=== PATIENT | male | born 1955 | race Caucasian/White ===

== ENCOUNTER 2024-12-23 10:48 | Outpatient (OUT) | payer MEDICARE, SELFPAY ==
--- OUTSIDE RECORDS SUMMARY | 2024-12-09 09:15 | XMS_ITS | Encounter Summary ---
Author Organization [employer] [facility] tem Address [id number] [address] [place] [address] Care Team Providers Care Training Engineer Name Role Phone Ashley Bryant MD Primary Care Provider Reason for Visit * Consultation (Routine) - Closed Specialty Diagnoses / Procedures Referred By Contac t Referred To Contact Cardiothoracic Surgery Diagnoses Pulmonary nodule Procedures DE OFFICE OUTPATIENT VISIT 60-74 MINS HIGH MDM [id number] (SNOMED CT) - AMB REFERRAL TO CARDIOTHORACIC SURGERY Reena Driscoll DO [address] [place] [address] Phone: tel: fax: Alphonso Juan MD [address] [place] [address] Phone: tel:[phone] fax:[phone] Referral ID Status Reason Start Date Expiration Date Visits Re quested Visits Authorized [id number] Closed 11/24/2024 05/23/2025 1 1 Encounter Details Date Type Department Care Team (Latest Contact Info) Description 12/09/2024 9:15 AM EDT Office Visit [facility] - Sean [facility] [address] [place] [phone] Alphonso Juan MD [address] [place], [place] [phone] Nodule of lower lobe of right lung (Primary Dx) Social History Tobacco Use Types Packs/Day Years Used Date Smoking Tobacco: Former Smokeless Tobacco: Never Alcohol Use Standard Drinks/Week Comments Yes 0 (1 standard drink = 0.6 oz pur e alcohol) rare PHQ-2 Answer Date Recorded Total Score 0 08/28/2020 Childcare Answer Date Recorded Childcare Unknown 01/06/2019 Employment Answer Date Recorded Employment Unknown 01/06/2019 Hunger Screening Answer Date Recorded Within the past 12 months we worried whether our food would run out before we got money to buy more. Never True 12/09/2024 Within the past 12 months th e food we bought just didn't last and we didn't have money to get more. Never True 12/09/2024 Purpose - Life Answer Date Recorded I have a purpose and direction in my life. Stron gly Agree 08/28/2020 Sex and Gender Information Value Date Recorded Sex Assigned at Male 10/19/2018 8:04 AM EDT Legal Sex Male 11:40 AM EDT Gender Identity Male 10/19/2018 8:04 AM EDT Sexual Orientation Straight 10/19/2018 8: 03 AM EDT documented as of this encounter Last Filed Vital Signs Vital Sign Reading Time Taken Comments Blood Pressure 150/70 12/09/2024 9:09 AM EDT Pulse 68 12/09/2024 9:09 AM EDT Temperature 36.3 C (97.3 F) 12/09/2024 9:09 AM EDT Respiratory Rate 18 12/09/2024 9:09 AM EDT Oxygen Saturation 97% 12/09/2024 9:09 AM EDT Inhaled Oxygen Concentration - - Weight 115.7 kg (255 lb) 12/09/2024 9:09 AM EDT Height - - Body Mass Index 32.72 09/21/2024 1:48 PM EST documented in this encounter Progress Notes * Alphonso Juan MD - 12/09/2024 9:15 AM EDT Images from the original note were not included. CARDIAC SURGERY OUTPATIENT CONSULT Date of Consultation: 12/09/2024 PCP: Ashley Bryant MD Chief Complaint: Right lower lobe lung nodule History of Present Illiness Wan Dawson is a 69 y.o. male who presents with right lower lobe lung nodule. He was a former smoker quit in 2006. In 2006 he underwent coronary bypass grafting x3 with ARAIZA to the LAD. He had a chest x-ray then a CT chest on 08/05/2024. This demonstrates 2.4 cm rounded right lower lobe medial lung lesion. PET scan on 08/30/[address] chest on 11/09/2024 shows right lower lobe lung nodule at 2.7 cm. He has no chest pain no shortness of breath. 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 Kidney stones Lumbar herniated disc Mitral regurgitation Obesity Other specified diabetes mellitus without complications ([facility]) Presence of aortocoronary bypass graft Renal cyst Sinusitis, chronic Vertigo Visual impairment glasses Surgical History has a past surgical history that includes Coronary artery bypass graft; Cardiac catheterization; Tonsillectomy; Knee surgery; Bowel resection; Ventral hernia repair (N/A, 11/09/2018); Cardiac catheterization (08/28/2020); Cardiac catheterization (N/A, 08/28/2020); Coronary stent placement (N/A, 08/28/2020); Colonoscopy; Cataract extraction; Cervical spine surgery; Esophagogastroduodenoscopy; Joint replacement (Left); Dental surgery; Colonoscopy (N/A, 01/11/2021); Cardiac catheterization (N/A, 03/27/2023); Cardiac catheterization (N/A, 03/27/2023); and Shoulder surgery (Right, 04/02/2023). Allergies Allergies Allergen Reactions Amoxicillin Trihydrate Rash Amoxicillin Rash Home Meds Prior to Admission medications Medication Sig Start Date End Date Taking? Authorizing Provider ACCU-CHEK FAN PLUS TEST STRP strip TEST TWICE DAILY 07/16/24 Yes Flor Valerio, [employer]EL SALES ASSOCIATE acetaminophen (TYLENOL) 500 mg tablet Take 1 tablet (500 mg total) by mouth every 6 (six) hours as needed for pain. Yes Not In System Ref Prov aspirin 81 mg Take 1 tablet (81 mg total) by mouth in the morning. Yes Not In System Ref Prov atorvastatin (LIPITOR) 20 mg tablet Take 1 tablet (20 mg total) by mouth in the morning. Yes Not InSystem Ref Prov cholecalciferol, vitamin D3, 2,000 units tablet Take 1 tablet (2,000 Units total) by mouth in the morning. Yes Not In System Ref Prov cyanocobalamin 2000 MCG tablet Take 1 tablet (2,000 mcg total) by mouth in the morning. Yes Not In System Ref Prov empagliflozin (JARDIANCE) 10 mg tablet tablet Take 1 tablet (10 mg total) by mouth in the morning. Stop previous script. 10/20/24 Yes Franck Hurtado MD ezetimibe (ZETIA) 10 mg tablet Take 1 tablet (10 mg total) by mouth in the morning. 09/23/24 Yes Franck Hurtado MD FeroSuL 325 mg (65 mg iron) tablet prn 08/23/22 Yes Not In System Ref Prov insulin aspart U-100 (NovoLOG Flexpen U-100 Insulin) 100 unit/mL (3 mL) insulin pen Inject 16 Unitsunder the skin in the morning and 16 Units at noon and 16 Units in the evening. Inject with meals. 03/24/24 Yes Franck Hurtado MD insulin degludec (TRESIBA FLEXTOUCH U-200) 200 unit/mL (3 mL) insulin pen 44 units daily as directed. 02/17/24 Yes Franck Hurtado MD lancets (ACCU-CHEK FASTCLIX LANCET DRUM) [facility] [place] TO TEST BLOOD SUGAR TWICE DAILY 07/23/24 Yes GERRY Batista melatonin (CIRCADIN) tablet Take 1 tablet (3 mg total) by mouth nightly. Yes Not In System Ref Prov metoprolol succinate XL (TOPROL XL) 25 mg 24 hr tablet Take 1 tablet (25 mg total) by mouth in the morning. 07/26/24 Yes GERRY Alfaro MOUNJARO 2.5 mg/0.5 mL pen injector Inject 2.5 mg under the skin once a week. 03/10/24 Yes Franck Hurtado MD nitroglycerin (NITROSTAT) 0.[address] 1 TABLET UNDER THE TONGUE EVERY 5 MINUTES NEEDED FOR CHEST PAIN 07/09/24 Yes GERRY De Luna omega-3 fatty acids-fish oil 300-1,000 mg capsule Take 1 mg by mouth in the morning. Yes Not In System Ref Prov pen needle, diabetic (BD GONZÁLEZ 2ND GEN PEN NEEDLE) 32 gauge x needle Use to inject insulins 5 times daily 02/20/24 Yes Franck Hurtado MD Social History Social History Socioeconomic History Marital status: Spouse name: Not on file Number of children: Not on file Years of education: Not on file Highest education level: Not on file Occupational History Not on file Tobacco Use Smoking status: Former Smokeless tobacco: Never Vaping Use Vaping status: Never Used Substance and Sexual Activity Alcohol use: Yes Comment: rare Drug use: No Sexual activity: Defer Other Topics Concern Caffeine Use Yes Comment: 1 cup in the morning Social History Narrative Not on file Social Drivers of Health Financial Resource Strain: Low Risk (12/31/2022) Received from [facility] Overall Financial Resource Strain (CARDIA) Difficulty of Paying Living Expenses: Not hard at all Food Insecurity: No Food Insecurity (12/09/2024) Hunger Screening Food Insecurity - Worry: Never True Food Insecurity - Inability: Never True Transportation Needs: Unknown (12/31/2022) Received from [facility] PRAPARE - Transportation Lack of Transportation (Medical): Not on file Lack of Transportation (Non-Medical): No Physical Activity: Not on file Stress: No Stress Concern Present (12/31/2022) Received from [facility] [place] [facility] Occupational Health - Occupational Stress Questionnaire Feeling of Stress : Not at all Social Connections: Socially Integrated (12/31/2022) Received from [facility] Social Connection and Isolation Panel [NHANES] Frequency of Communication with Friends and Family: More than three times a week Frequency of Social Gatherings with Friends and Family: Twice a week Attends [employer] Services: More than 4 times per year Active Member of Clubs or Organizations: Yes Attends Club or Organization Meetings: More than 4 times per year Marital Status: Interpersonal Safety: Unknown (12/31/2022) Received from [facility] Humiliation, Afraid, Rape, and Kick questionnaire Fear of Current or Ex-Partner: No Emotionally Abused: No Physically Abused: No Sexually Abused: Not on file Housing Instability: Unknown (12/31/2022) Received from [facility] Housing Stability Vital Sign Unable to Pay for Housing in the Last Year: No Number of Places Lived in the Last Year: Not on file Unstable Housing in the Last Year: No Family History Family History Problem Relation Age of Onset Cancer Mother Diabetes Mother Hypertension Father Review of Systems Review of Systems Constitutional: Positive for malaise/fatigue. Cardiovascular: Positive for dyspnea on exertion. All other systems reviewed and are negative. Physical Examination Vital Signs: BP 150/70 Pulse 68 Temp 36.3 ??C (97.3 ??F) (Temporal) Resp 18 Wt 115.7 kg (255 lb) SpO2 97% BMI 32.72 kg/m?? General appearance: He appears comfortable Head: Normocephalic, without obvious abnormality, atraumatic Eyes: Conjunctivae/corneas clear. PERRL, EOM's intact. Neck: Negative Lungs: Clear Heart: Regular rate and rhythm no murmur Abdomen: Soft, non-tender. Bowel sounds normal. No masses, no organomegaly Extremities: Normal Skin: Skin color, texture, turgor normal. No rashes or lesions Neurologic: Grossly normal Assessment All testing has been independently reviewed Diagnosis: Enlarging PET negative right lower lobe lung nodule. This has not been biopsied. It is in a difficult spot for biopsy. It would be reasonable to proceed with right lower lobe robotic wedge resection of the nodule. If this is a malignancy we would proceed to lobectomy. In preparation for that potential I am going to order pulmonary function tests and stress test. Plan Pulmonary function test and then stress test and then follow up for further discussion regarding right lower lobe lung nodule. Thank you for referring the patient allowing me to participate in his care documented in this encounter Plan of Treatment Upcoming Encounters Date Type Department Care Team (Late st Contact Info) Description 01/04/2025 9:00 AM EDT Appointment [facility] - Stress Imaging [address] [place] [address] 01/04/2025 9:15 AM EDT Appointment [facility] - Stress Imaging [address] [place] [address] 01/04/2025 9:45 AM EDT Appointment [facility] - Cardiovascular [address] [place] [address] 01/04/2025 10:45 AM EDT Appointment [facility] - Stress Imaging [address] [place] [address] 01/13/2025 9:00 AM EDT Office Visit [facility] - Sean [facility] [address] [facility] [address] [place] [phone] Alphonso Juan MD [address] [facility] [address] [place] [address] 01/20/2025 9:15 AM EDT Office Visit [facility] Card[facility] [address] [facility] [address] [place] [address] Tito Barrios MD [address] [facility] [place] [address] 02/28/2025 9:45 AM EDT Office Visit [facility], A Department of [facility] [address] [phone] Cassy Gongora, [employer] W[employer]-APPAREL SALES ASSOCIATE [address] [address] 06/20/2025 8:15 AM EST Office Visit [facility] Department of [facility] [address] [facility] [address] [place] [phone] Franck Hurtado MD [address] [facility], [address] [place] [address] documented as of this encounter Visit Diagnoses Diagnosis Nodule of lower lobe of right lung- Primary documented in this encounter Additional Health Concerns Assessment Noted Time PHQ-9 Depression Total Score: 0 08/28/19 8:39 AM EST documented as of this encounter Care Teams Training Engineer Relationship Specialty Start Date End Date Ashley Bryant MD PCP - General Family Medicine 12/27/16 documented as of this encounter
--- OUTSIDE RECORDS SUMMARY | 2024-12-13 07:54 | XMS_ITS | Encounter Summary ---
Author Organization [facility] tem Address [id number] [address] [place] [address] Care Team Providers Care Certified Master Safe Technician Name Role Phone Ashley Bryant MD Primary Care Provider [phone] Encounter Details Date Type Department Care Team (Latest Contact Info) Description 12/13/2024 7:54 AM EDT - 12/13/2024 11:59 PM EDT Hospital Encounter [facility] - Pulmonary Function [address] [place] [address] Shortness of breath Discharge Disposition: Home Social History Tobacco Use Types Packs/Day Years [...] AM EDT documented as of this encounter Medications at Time of Discharge ACCU-CHEK FAN PLUS TEST STRP strip TEST TWICE DAILY 200 strip 3 07/16/2024 acetaminophen (TYLENOL) 500 mg tablet Take 1 tablet (500 mg total) by mouth every 6 (six) hours as needed for pain. aspirin 81 mg Take 1 tablet (81 mg total) by mouth in the morning. atorvastatin (LIPITOR) 20 mg tablet Take 1 tablet (20 mg total) by mouth in the morning. cholecalciferol, vitamin D3, 2,000 units tablet Take 1 tablet (2,000 Units total) by mouth in the morning. cyanocobalamin 2000 MCG tablet Take 1 tablet (2,000 mcg total) by mouth in the morning. empagliflozin (JARDIANCE) 10 mg tablet tablet Take 1 tablet (10 mg total) by mouth in the morning. Stop previous script. 90 tablet 3 10/20/2024 ezetimibe (ZETIA) 10 mg tabletIndications:Ty pe 2 diabetes mellitus with hyperglycemia, with long-term current use of insulin ([facility]),Other hyperlipidemia Take 1 tablet (10 mg total) by mouth in the morning. 90 tablet 3 09/23/2024 FeroSuL 325 mg (65 mg iron) tablet prn 08/23/2022 insulin aspart U-100 (NovoLOG Flexpen U-100 Insulin) 100 unit/mL (3 mL) insulin penIndications:Type 2 diabetes mellitus with hyperglycemia, with long-term current use of insulin ([facility]) Inject 16 Units under the skin in the morning and 16 Units at noon and 16 Units in the evening. Inject with meals. 45 mL 3 03/24/2024 insulin degludec (TRESIBA FLEXTOUCH U-200) 200 unit/mL (3 mL) insulin penIndications:Type 2 diabetes mellitus with hyperglycemia, with long-term current use of insulin ([facility]) 44 units daily as directed. 45 mL 3 02/17/2024 lancets (ACCU-CHEK FASTCLIX LANCET DRUM) miscIndications:Type 2 diabetes mellitus with hyperglycemia, with long-term current use of insulin ([facility]) USE TO TEST BLOOD SUGAR TWICE DAILY 200 each 3 07/23/2024 melatonin (CIRCADIN) tablet Take 1 tablet (3 mg total) by mouth nightly. metoprolol succinate XL (TOPROL XL) 25 mg 24 hr tabletIndications:Co ronary artery disease involving [place] coronary artery of [place] heart without angina pectoris,Status post insertion of drug-eluting stent into right coronary artery for coronary artery disease,S/P CABG x 3 Take 1 tablet (25 mg total) by mouth in the morning. 90 tablet 3 07/26/2024 MOUNJARO 2.5 mg/0.5 mL pen injectorIndications: Type 2 diabetes mellitus with hyperglycemia, with long-term current use of insulin ([facility]) Inject 2.5 mg under the skin once a week. 2 mL 11 03/10/2024 nitroglycerin (NITROSTAT) 0.4 MG SL tabletIndications:S/ P CABG x 3,Status post insertion of drug-eluting stent into right coronary artery for coronary artery disease,Coronary artery disease involving [place] coronary artery of [place] heart without angina pectoris PLACE 1 TABLET UNDER THE TONGUE EVERY 5 MINUTES NEEDED FOR CHEST PAIN 25 tablet 3 07/09/2024 omega-3 fatty acids-fish oil 300-1,000 mg capsule Take 1 mg by mouth in the morning. pen needle, diabetic (BD GONZÁLEZ 2ND GEN PEN NEEDLE) 32 gauge x 5/32 needleIndications:Ty pe 2 diabetes mellitus with hyperglycemia, with long-term current use of insulin ([facility]) Use to inject insulins 5 times daily 500 each 3 02/20/2024 documented as of this encounter Plan of Treatment Upcoming Encounters Date Type Department Care Team (Late st Contact Info) Description 01/04/2025 9:00 AM EDT Appointment [facility] - Stress Imaging [address] [place] [address] 01/04/2025 9:15 AM EDT Appointment [facility] - Stress Imaging [address] [place] [address] 01/04/2025 9:45 AM EDT Appointment [facility] - Cardiovascular [address] [place] [address] 01/04/2025 10:45 AM EDT Appointment [facility] - Stress Imaging [address] [place] [address] 01/13/2025 9:00 AM EDT Office Visit [facility] - Sean [facility] [address] [facility] [address] [place] [phone] Alphonso Juan MD [address] [facility] [address] [place] [address] 01/20/2025 9:15 AM EDT [facility] [address] [facility] [address] [place] [address] Tito Barrios MD [address] [facility] [place] [address] 02/28/2025 9:45 AM EDT Office Visit [facility] Adult Endocrinology, A Department of [facility] [address] [facility] [address] [place] [phone] Cassy Gongora, GARMENT ALTERATION EXAMINER-SUPERVISOR LABORATORY [address] [facility] [address] [place] [address] 06/20/2025 8:15 AM EST Office Visit [facility] Adult Endocrinology, A Department of [facility] [address] [facility] [address] [place] [phone] Franck Hurtado MD [address] [facility] [place] [address] Pending Results Name Type Priority Associated Diagnoses Date /Time Pulmonary function test Complete PFT (Spirometry (Flow Volume Loop) w/ DLCO (diffusion study) and Lung Volume) PFT Routine Shortness of breath 12/13/2024 8:15 AM EDT Scheduled Orders Name Type Priority Associated Diagnoses Orde r Schedule Pulmonary function test Complete PFT (Spirometry (Flow Volume Loop) w/ DLCO (diffusion study) and Lung Volume) PFT Routine Shortness of breath Once for 1 Occurrences starting 12/13/2024 until 12/13/2024 documented as of this encounter Visit Diagnoses Diagnosis Shortness of breath documented in this encounter Additional Health Concerns Assessment Noted Time PHQ-9 Depression Total Score: 0 08/28/19 21 8:39 AM EST documented as of this encounter Care Teams Certified Master Safe Technician Relationship Specialty Start Date End Date Ashley Bryant MD PCP - General Family Medicine 12/27/16 documented as of this encounter
--- OUTSIDE RECORDS SUMMARY | 2024-12-22 15:45 | XMS_ITS | Encounter Summary ---
Author Organization [facility] Address [address] [place] [address] Care Team Providers Care Manager Rental Name Role Phone Ashley Bryant MD Unavailable Ashley Bryant MD Primary Care Provider [phone] Reason for Visit * Reason Comments Pulmonary nodule 1 month follow up Encounter Details Date Type Department Care Team (Late st Contact Info) Description 12/22/2024 3:45 PM EDT Office Visit [facility] [address] [place] [phone] Reena Driscoll, DO [address] [place] [address] Pulmonary nodule (Primary Dx) Social History Tobacco Use Types Packs/Day Years Used Date Smoking Tobacco: Former Cigarettes 1.5 33.4 0 02/08/1974 - 06/27/2007 Smokeless Tobacco: Never Alcohol Use Standard Drinks/Week Comments Yes 1 (1 standard drink = 0.6 oz pure alcohol) caffeine 1-2 cups/day; chocolate Humiliation, Afraid, Rape, and Kick questionnair e Answer Date Recorded Within the last year, have y ou been afraid of your partner or ex-partner? No 12/31/2022 Within the last year, have y ou been humiliated or emotionally abused in other ways by your partner or ex-partner? No 12/31/2022 Within the last year, have y ou been kicked, hit, slapped, or otherwise physically hurt by your partner or ex-partner? No 12/31/2022 Sexually Abused Not on file 12/31/2022 Social Connection and Isolat ion Panel [NHANES] Answer Date Recorded In a typical week, how many times do you talk on the phone with family, friends, or neighbors? More than three times a week 12/31/2022 How often do you get togethe r with friends or relatives? Twice a week 12/31/2022 How often do you attend chur ch or temple services? More than 4 times per year 12/31/2022 Do you belong to any clubs o r organizations such as zoroastrianism groups, unions, fraternal or athletic groups, or school groups? Yes 12/31/2022 How often do you attend meet ings of the clubs or organizations you belong to? More than 4 times per year 12/31/2022 Are you , , di vorced, , never , or living with a partner? 12/31/2022 AUDIT-C Answer Date Recorded Q1: How often do you have a drink containing alc ohol? Monthly or less 12/31/2022 Q2: How many drinks containi ng alcohol do you have on a typical day when you are drinking? 1 or 2 12/31/2022 Q3: How often do you have si x or more drinks on one occasion? Never 12/31/2022 Overall Financial Resource Strain (CARDIA) Answe r Date Recorded How hard is it for you to pa y for the very basics like food, housing, medical care, and heating? Not hard at all 12/31/2022 PHQ-2 Answer Date Recorded Patient Health Questionnaire-2 Score 0 12/18/2023 [facility] [place] [facility] Occupat ional Health - Occupational Stress Questionnaire Answer Date Recorded Do you feel stress - tense, restless, nervous, or anxious, or unable to sleep at night because your mind is troubled all the time - these days? Not at all 12/31/2022 Hunger Vital Sign Answer Date Recorded Within the past 12 months, y ou worried that your food would run out before you got the money to buy more. Never true 01/01/20 23 Within the past 12 months, t he food you bought just didn't last and you didn't have money to get more. Never true 12/31/2022 PRAPARE - Transportation Answer Date Re corded Lack of Transportation (Medical) Not on file 12/31/2022 In the past 12 months, has l ack of transportation kept you from meetings, work, or from getting things needed for daily living? No 12/31/2022 Housing Stability Vital Sign Answer Mele e Recorded In the last 12 months, was t here a time when you were not able to pay the mortgage or rent on time? No 12/31/2022 Number of Places Lived in the Last Year Not on f ile 12/31/2022 In the last 12 months, was t here a time when you did not have a steady place to sleep or slept in a halfway (including now)? No 12/31/2022 Sex and Gender Information Value Date Recorded Sex Assigned at Not on file Legal Sex Male 7:07 PM EDT Gender Identity Male 10/09/2022 7:07 PM EDT Sexual Orientation Not on file documented as of this encounter Last Filed Vital Signs Vital Sign Reading Time Taken Comments Blood Pressure 134/72 12/22/2024 3:44 PM EDT Pulse 74 12/22/2024 3:44 PM EDT Temperature - - Respiratory Rate - - Oxygen Saturation 95% 12/22/2024 3:44 PM EDT Inhaled Oxygen Concentration - - Weight 116 kg (255 lb 12.8 oz) 12/22/2024 3:44 P M EDT Height 190.5 cm (6' 3 ) 12/22/2024 3:44 PM EDT Body Mass Index 31.97 12/22/2024 3:44 PM EDT documented in this encounter Progress Notes * Reena Driscoll, DO - 12/22/2024 3:45 PM EDT Images from the original note were not included. Wan Juan R Dawson presents today for follow up on pulmonary nodule. He was last seen 1 month ago. Since his last office visit he was evaluated by thoracic surgery. They did order PFTs. He is scheduled to see him again in 2 weeks. He also scheduled to have a stress test performed as part of his preoperative workup. He states that he also is suffering from a kidney stone in his scheduled to see urology soon as well. He denies any current complaints of shortness breath at rest or with exertion. He denies any chest pain, palpitations, fevers, chills, sweats, or recent unintentional weight changes. He denies any other complaints at this time. Allergies: Allergies Allergen Reactions Amoxicillin Rash Cephalexin Diarrhea Medications: Current Outpatient Medications: Accu-Chek Jeanna Plus test strip, , Disp: , Rfl: Accu-Chek FastClix Lancets [facility] , Disp: , Rfl: acetaminophen (Tylenol) 500 MG tablet, Take 500 mg by mouth every 6 (six) hours if needed, Disp: , Rfl: aspirin 81 MG EC tablet, Take 81 mg by mouth Daily, Disp: , Rfl: atorvastatin (Lipitor) 20 MG tablet, TAKE 1 TABLET(20 MG) BY MOUTH DAILY, Disp: 90 tablet, Rfl: 1 BD Pen Needle Abbie 2nd Gen 32G X 4 MM [facility], , Disp: , Rfl: cholecalciferol (Vitamin D-3) 50 MCG (2000 UT) capsule, 1 capsule 1 (one) time each day at the sametime, Disp: , Rfl: Cyanocobalamin (Vitamin B12) 1000 MCG tablet controlled-release, 1 (one) time each day at the same time, Disp: , Rfl: ezetimibe (Zetia) 10 MG tablet, , Disp: , Rfl: ferrous sulfate 325 (65 Fe) MG tablet, Take 325 mg by mouth in the morning. Take with meals., Disp:, Rfl: insulin aspart (NovoLOG) 100 UNIT/ML injection, Inject 16 Units under the skin in the morning and 16 Units at noon and 16 Units in the evening. Inject with meals., Disp: , Rfl: insulin degludec (Tresiba FlexTouch) 100 UNIT/ML injection, Inject 44 Units under the skin Daily, Disp: , Rfl: Jardiance 10 MG, Take 10 mg by mouth Daily, Disp: , Rfl: melatonin 3 MG tablet, Take 3 mg by mouth as needed at bedtime, Disp: , Rfl: metoprolol succinate XL (Toprol-XL) 25 MG 24 hr tablet, Take 25 mg by mouth Daily, Disp: , Rfl: Mounjaro 2.5 MG/0.5ML solution pen-injector, Take 2.5 mg by mouth 1 (one) time per week, Disp: , Rfl: NovoLOG FLEXPEN 100 UNIT/ML pen, ADMINISTER 16 UNITS UNDER THE SKIN IN THE MORNING AND AT NOON AND IN THE EVENING WITH MEALS, Disp: , Rfl: omega-3 (fish oil) 1200 MG capsule, 1 capsule 1 (one) time each day at the same time, Disp: , Rfl: Past Medical History: Past Medical History: Diagnosis Date AAA (abdominal aortic aneurysm) ([facility]/HCC) Allergic Anemia Arthritis Atypical chest pain 04/27/2019 CAD (coronary artery disease) (CMS/HCC) Diabetes (CMS/HCC) Diverticulitis Diverticulosis Headache Heart disease Hyperlipidemia (CMS/HCC) Hypertension (CMS/HCC) Kidney disease Kidney stone Nodule of lower lobe of right lung 12/09/2024 Rotator cuff syndrome late 2022 Scoliosis Social History: Social History Tobacco Use Smoking status: Former Current packs/day: 0.00 Average packs/day: 1.5 packs/day for 33.4 years (50.1 ttl pk-yrs) Types: Cigarettes Start date: 02/08/1974 Quit date: 06/27/2007 Years since quittin.5 Smokeless tobacco: Never Substance Use Topics Alcohol use: Yes Alcohol/week: 1.0 standard drink of alcohol Types: 1 Standard drinks or equivalent per week Comment: caffeine 1-2 cups/day; chocolate Vitals: BP 134/72 (BP Location: Left arm, Patient Position: Sitting) Pulse 74 Ht 6' 3 Wt 255 lb 12.8oz SpO2 95% BMI 31.97 kg/m?? Exam: Heart: regular rate Lungs: clear to auscultation bilaterally, no wheezes/rales/rhonchi, no resp distress Extremities: no edema noted, no visible rashes Neuro: alert, oriented x3 Imaging Reviewed: PFT's from November 2024 reviewed - - FVC 5.32 L ( 105 %), FEV1 3.32 L ( 99 %), ratio 62 %, no air trapping or hyperinflation present, normal DLCO Assessment/Plan: Diagnoses and all orders for this visit: Pulmonary nodule Pulmonary nodule -- he was evaluated by thoracic surgery since his last office visit. He is scheduled to follow with them in 2 weeks after his stress test is performed. He is also scheduled to see Urology given his complaints of a kidney stone. At this time we did review his PFTs. I do not have anyreason from a pulmonary perspective at he can not undergo surgical intervention. His PFTs do demonstrate mild obstructive changes, however nothing that would inhibit him from a surgery standpoint. Yoni have some questions in regards to his lung capacity postoperatively. At today's to questions the best based on his preoperative PFTs in his current functional level. He does plan to go on vacation in April in his hoping to be able to participate in all the activities he as planned. At this time he will follow here in a few months' time to go over his surgery as well as review any changes atthat point. Follow up in about 2 months (around 02/21/2025). Reena Driscoll DO documented in this encounter Plan of Treatment Upcoming Encounters Date Type Department Care Team (Late st Contact Info) Description 02/16/2025 11:15 AM EDT Office Visit [facility] [address] [place] [address] Reena Driscoll DO [address] [place] [address] documented as of this encounter Visit Diagnoses Diagnosis Pulmonary nodule- Primary Other diseases of lung, not elsewhere classified documented in this encounter Care Teams Manager Rental Relationship Specialty Start Date End Date Ashley Bryant MD [address] [place] [address] PCP - ACO Reach 12/19/22 Ashley Bryant MD [address] [place], [place] [id number] PCP - General Family Medicine 12/26/22 documented as of this encounter
--- OUTSIDE RECORDS SUMMARY | 2024-12-23 10:55 | XMS_ITS | Encounter Summary ---
Author Organization [facility] [employer] Sys [employer] Address [id number] [address] [place] [address] Care Team Providers Care Customs Patrol Officer Name Role Phone Ashley Bryant MD Primary Care Provider [phone] Encounter Details Date Type Department Care Team (Late st Contact Info) Description 10/09/2023 Telephone [facility] [address] [place] [address] Franck Hurtado MD [address] [place] [address] Social History Tobacco Use Types Packs/Day Years [...] got money to buy more. Never True 09/10/2023 Within the past 12 months th e food we bought just didn't last and we didn't have money to get more. Never True 09/10/2023 Purpose - Life Answer Date Recorded I have a purpose and direction in my life. Stron gly Agree 08/28/2020 Sex and Gender Information Value Date Recorded Sex Assigned at Male 10/19/2018 8:04 AM EDT Legal Sex Male 11:40 AM EDT Gender Identity Male 10/19/2018 8:04 AM EDT Sexual Orientation Straight 10/19/2018 8: 03 AM EDT documented as of this encounter Miscellaneous Notes * Telephone Encounter - Saritha Ventura - 10/09/2023 2:34 PM EDT Pt has stomach issues being on ozempic. He is type 2 diabetic and prefers the victoza (which he wason last year). I sent a new script on the , are we able to prior auth this? Please advise. Thank you * Telephone Encounter - Lorenza Ceballos LPN - 10/09/2023 2:34 PM EDT INSURANCE PREFERS BYETTA, TRULICITY, SOLIQUA, XULTOPHY, BYDUREON, RYBELSUS, OZEMPIC AND MOUNJARO. * Telephone Encounter - Franck Hurtado MD - 10/09/2023 2:34 PM EDT I am okay to change it to Mounjaro if patient is okay with it. If you had intolerance to Mounjaro as well in the past kindly let me know. * Telephone Encounter - Saritha Ventura - 10/09/2023 2:34 PM EDT Patient stated he is taking ozempic 0.5mg dose and is going out of town. He may need to ask for a sample while he goes out of the [place] a month. He will discuss with Chiquita on next visit documented in this encounter Plan of Treatment Upcoming Encounters Date Type Department Care Team (Late st Contact Info) Description 01/04/2025 9:00 AM EDT Appointment [facility] - Stress Imaging [address] [place] [address] 01/04/2025 9:15 AM EDT Appointment [facility] [address] [place] [address] 01/04/2025 9:45 AM EDT Appointment [facility] - Cardiovascular [address] [place] [address] 01/04/2025 10:45 AM EDT Appointment [facility] [address] [place] [address] 01/13/2025 9:00 AM EDT Office Visit [facility] [address] [facility] [address] [place] [phone] Alphonso Juan MD [address] [facility] [address] [place] [address] 01/20/2025 9:15 AM EDT Office Visit [facility] [address] [place] [address] [address] [place] [phone] Tito Barrios MD [address] [facility] [place] [address] 02/28/2025 9:45 AM EDT Office Visit [facility] Department of [facility] [address] [facility] [address] [place] [phone] Cassy Gongora, RADIO ANTENNA INSTALLER-GLAZIER ARTIST [address] [address] 06/20/2025 8:15 AM EST Office Visit [facility] [address] [facility] [address] [place] [phone] Franck Hurtado MD [address] [facility] [place] [address] documented as of this encounter Visit Diagnoses Not on filedocumented in this encounter Additional Health Concerns Assessment Noted Time PHQ-9 Depression Total Score: 0 08/28/19 21 8:39 AM EST documented as of this encounter Care Teams Customs Patrol Officer Relationship Specialty Start Date End Date Ashley Bryant MD PCP - General Family Medicine 12/27/16 documented as of this encounter
--- OUTSIDE RECORDS SUMMARY | 2024-12-23 10:55 | XMS_ITS | Encounter Summary ---
Author Organization [facility] Address [address] [place] [address] Care Team Providers Care Wood Heel Fitter Machine Name Role Phone Ashley Bryant MD Unavailable Ashley Bryant MD Primary Care Provider [phone] Encounter Details Date Type Department Care Team (Late st Contact Info) Description 12/22/2024 Bamboo flowsheet [facility] [address] [place] [address] Reena Driscoll, DO [address] [place] [address] Social History Tobacco Use Types Packs/Day Years [...] often do you attend chur ch or denominational services? More than 4 times per year 12/31/2022 Do you belong to any clubs o r organizations such as mandaen groups, unions, fraternal or athletic groups, or [...] Recorded Patient Health Questionnaire-2 Score 0 12/18/2023 [facility] ional Health - Occupational Stress [...] place to sleep or slept in a long-term (including now)? No 12/31/2022 Sex and Gender Information Value Date Recorded Sex Assigned at Not on file Legal Sex Male 7:07 PM EDT Gender Identity Male 10/09/2022 7:07 PM EDT Sexual Orientation Not on file documented as of this encounter Plan of Treatment Upcoming Encounters Date Type Department Care Team (Late st Contact Info) Description 02/16/2025 11:15 AM EDT Office Visit [facility] [address] [place] [address] Reena Driscoll, DO [address] [place] [address] documented as of this encounter Visit Diagnoses Not on filedocumented in this encounter Care Teams Wood Heel Fitter Machine Relationship Specialty Start Date End Date Ashley Bryant MD [address] [place] [address] PCP - ACO Reach 12/19/22 Ashley Bryant MD [address] [place], [place] [phone] PCP - General Family Medicine 12/26/22 documented as of this encounter
--- OUTSIDE RECORDS SUMMARY | 2024-12-23 10:56 | XMS_ITS | Clinical Summary ---
Author Organization [facility] Address [address] [place] [address] Care Team Providers Care Acid Maker Name Role Phone Ashley Bryant MD Unavailable Ashley Bryant MD Primary Care Provider [phone] Allergies Active Allergy Reactions Criticality Noted Date Comments Amoxicillin Rash Low 12/09/2022 Cephalexin Diarrhea Low 12/09/2022 Medications acetaminophen (Tylenol) 500 MG tablet Take 500 mg by mouth every 6 (six) hours if needed Active aspirin 81 MG EC tablet Take 81 mg by mouth Daily Active cholecalciferol (Vitamin D-3) 50 MCG (1999 UT) capsule 1 capsule 1 (one) time each day at the same time Active Cyanocobalamin (Vitamin B12) 1000 MCG tablet controlled-releas e 1 (one) time each day at the same time Active ferrous sulfate 325 (65 Fe) MG tablet Take 325 mg by mouth in the morning. Take with meals. Active insulin aspart (NovoLOG) 100 UNIT/ML injection Inject 16 Units under the skin in the morning and 16 Units at noon and 16 Units in the evening. Inject with meals. Active insulin degludec (Tresiba FlexTouch) 100 UNIT/ML injection Inject 44 Units under the skin Daily Active melatonin 3 MG tablet Take 3 mg by mouth as needed at bedtime Active metoprolol succinate XL (Toprol-XL) 25 MG 24 hr tablet Take 25 mg by mouth Daily Active omega-3 (fish oil) 1200 MG capsule 1 capsule 1 (one) time each day at the same time Active Mounjaro 2.5 MG/0.5ML solution pen-injector Take 2.5 mg by mouth 1 (one) time per week Active Jardiance 10 MG Take 10 mg by mouth Daily 01/24/20 24 Active Accu-Chek Jeanna Plus test strip 07/15/20 24 Active BD Pen Needle Abbie 2nd Gen 32G X 4 MM [facility] 06/30/20 24 Active Accu-Chek FastClix Lancets [facility] 07/13/20 24 Active NovoLOG FLEXPEN 100 UNIT/ML pen ADMINISTER 16 UNITS UNDER THE SKIN IN THE MORNING AND AT NOON AND IN THE EVENING WITH MEALS 09/09/19 25 Active ezetimibe (Zetia) 10 MG tablet 09/22/19 25 Active atorvastatin (Lipitor) 20 MG tabletIndications :Mixed hyperlipidemia (CMS/HCC) TAKE 1 TABLET(20 MG) BY MOUTH DAILY 90 tablet 1 12/14/19 25 Active atorvastatin (Lipitor) 20 MG tabletIndications :Mixed hyperlipidemia (CMS/HCC) Take 1 tablet (20 mg) by mouth Daily 100 tablet 3 12/25/19 24 2024 Discontinued Active Problems Problem Noted Date Diagnosed Date Bacterial respiratory infection 11/18/2023 Benign paroxysmal positional vertigo of right ea r 10/23/2023 Thoracoabdominal aortic aneurysm (TAAA) without rupture 12/09/2022 Adrenal nodule 12/09/2022 Angiopathy, diabetic 12/09/2022 Arthritis of right acromioclavicular joint 12/09 Atherosclerosis of [place] co ronary artery of [place] heart without angina pectoris 12/09/2022 Benign essential hypertension 12/09/2022 Carotid artery stenosis 12/09/2022 Overview (12/25/2023): Less than 50% bilateral 2022 Cervical disc herniation 12/09/2022 Chronic sinusitis 12/09/2022 Chronic ulcer of toe of left foot with fat layer exposed 12/09/2022 Cochlear hydrops of right ear 12/09/2022 Displacement of lumbar inter vertebral disc without myelopathy 12/09/2022 Diverticular disease of colon 12/09/2022 Erythrocytosis 12/09/2022 Eustachian tube dysfunction, right 12/09/2022 Kidney stone 12/09/2022 Mixed hyperlipidemia 12/09/2022 Obesity, unspecified 12/09/2022 PVC (premature ventricular contraction) 12/10/19 Tension-type headache, not intractable Thyroid enlargement 12/09/2022 Umbilical hernia 12/09/2022 Vitamin D deficiency 12/09/2022 History of syncope 11/25/2022 Hx of hyperlipidemia 09/17/2022 Intermittent lightheadedness 01/10/2022 Open wound of fourth toe of left foot 09/25/2020 Intermittent palpitations 04/27/2019 LAE (left atrial enlargement) 04/27/2019 Grade I diastolic dysfunction 10/22/2018 Mild mitral regurgitation 10/22/2018 S/P CABG x 3 10/22/2018 Abnormal electrocardiogram 07/05/2015 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 09/16/2013 Resolved Problems Problem Noted Date Diagnosed Date Resolved Date Nodule of lower lobe of right lung 12/09/2024 12/17/2024 Abdominal aortic aneurysm without rupture 12/09/2022 12/25/2023 Acute recurrent sinusitis 12/09/2022 Iron deficiency anemia 12/09/202212/24 Non-pressure chronic ulcer o f other part of unspecified foot with unspecified severity 12/09/2022 12/25/2023 Onychomycosis due to dermatophyte 12/09/2022 12/25/2023 Pressure ulcer of other site, stage 1 12/09/2022 12/25/2023 Type 2 diabetes mellitus with foot ulcer 12/09/2022 12/25/2023 Type 2 diabetes mellitus wit hout complication, without long-term current use of insulin 12/09/2022 12/25/2023 Type 2 diabetes mellitus with foot ulcer 12/09/2022 12/25/2023 Atypical chest pain 04/27/2019 08/30/19 25 Encounters Date Type Department Care Team Description 12/22/2024 3:45 PM EDT Office Visit [facility] [address] [place] [address] Reena Drisclol DO Pulmonary nodule (Primary Dx) 12/22/2024 Bamboo flowsheet [facility] [address] [place] [address] Reena Driscoll DO 12/21/2024 Abstract [facility] [address] [place] [address] Kalyn Anaya MA 12/15/2024 Travel 12/13/2024 Refill [facility] [address] [place] [phone] Ashley Bryant MD Mixed hyperlipidemia (CMS/HCC) 11/24/2024 8:30 AM EDT Office Visit [facility] [address] [facility] [phone] Reena Driscoll DO Pulmonary nodule (Primary Dx) 11/24/2024 Bamboo flowsheet [facility] [address] [place] [phone] Reena Driscoll DO 11/17/2024 Travel 11/10/2024 Results Follow-Up [facility] [address] [place] [phone] Ashley Bryant MD Lung nodule seen on imaging study (Primary Dx) 11/09/2024 9:30 AM EDT Ancillary Procedure [facility] [address] [place] [address] 11/09/2024 Travel 11/02/2024 Travel 10/12/2024 Orders Only [facility] [address] [facility] [place] [phone] Gianna Wen MA Lung nodule, solitary; Pulmonary nodule 10/12/2024 Telephone [facility] [address] [facility] [place] [phone] Ashley Bryant MD from Last 3 Months Immunizations Immunization Administration Dates Next Due ABRYSVO - Respiratory syncyt ial virus (RSV), vaccine, bivalent, protein subunit RSV prefusion F, diluent reconstituted, 0.5 mL, PF 04/14/2023 Influenza Whole 05/15/2009 Influenza, High Dose Seasona l, Preservative Free 04/13/2022,04/05/2019,04/07/2018 Influenza, High-dose Seasona l, Quadrivalent, Preservative Free 04/14/2023,04/13/2022,04/06/2021,04/05,04/07/2018 Influenza, Injectable, MDCK, preservative free 04/12/2024 Influenza, injectable, quadr ivalent, preservative free 04/20/2020,04/11/2017,04/09/2017,06/04,05/02/2016,05/20/2015,05/09/2014 Influenza, seasonal, injectable 05/15/2013 Influenza, seasonal, injecta ble, preservative free 05/15/2015,05/15/2013 Influenza, seasonal, intrade rmal, preservative free 05/25/2014 Novel [id number], preservative-free 07/31/2009 Pneumococcal Conjugate PCV 13 06/29/2018 Pneumococcal Conjugate PCV 20 04/12/2024 Pneumococcal Polysaccharide PPSV23 09/21/2019, Td (adult), 5 Lf tetanus tox oid, preservative free, adsorbed 06/10/2008 Tdap 09/14/2022,05/22/2021,08/08/2010 Unknown outside immunization 04/20/2020 Zoster, Recombinant 05/03/2023,03/10/2023 Zoster, live 04/06/2013 Family History Medical History Relation Name Comments Depression Brother marilyn No Known Problems Child 2 sons, 1 daughter Alzheimer's disease Father waqas Coronary artery disease Father waqas Depression Father waqas Alcohol abuse Father's Brother pat Diabetes Father's Brother pat Cancer Mother Ayde Diabetes Mother Ayde Relation Name Status Comments Brother marilyn Child Alive Father waqas (Age 78) Father's Brother pat Maternal Grandmother Sofia Alive Mother Ayde (Age 87) Social History Tobacco Use Types Packs/Day Years Used Date Smoking Tobacco: Former Cigarettes 1.5 33.4 0 02/08/1974 - 06/27/2007 Smokeless Tobacco: Never Tobacco Cessation:Counseling Given: Not Answered Alcohol Use Standard Drinks/Week Comments Yes 1 [...] week 12/31/2022 How often do you attend [facility] or hindu services? More than 4 times per year 12/31/2022 Do you belong to any clubs o r organizations such as restoration groups, unions, fraternal or athletic groups, or [...] Recorded Patient Health Questionnaire-2 Score 0 12/18/2023 [facility] - Occupational Stress [...] place to sleep or slept in a jail (including now)? No 12/31/2022 Sex and Gender Information Value Date Recorded Sex Assigned at Not on file Legal Sex Male 7:07 PM EDT Gender Identity Male 10/09/2022 7:07 PM EDT Sexual Orientation Not on file Last Filed Vital Signs Vital Sign Reading Time Taken Comments Blood Pressure 134/72 12/22/2024 3:44 PM EDT Pulse 74 12/22/2024 3:44 PM EDT Temperature - - Respiratory Rate 18 03/03/2024 1:07 PM EDT Oxygen Saturation 95% 12/22/2024 3:44 PM EDT Inhaled Oxygen Concentration - - Weight 116 kg (255 lb 12.8 oz) 12/22/2024 3:44 P M EDT Height 190.5 cm (6' 3 ) 12/22/2024 3:44 PM EDT Body Mass Index 31.97 12/22/2024 3:44 PM EDT Plan of Treatment Upcoming Encounters Date Type Department Care Team (Late st Contact Info) Description 02/16/2025 11:15 AM EDT Office Visit [facility] [address] [place] [address] Reena Driscoll, DO [address] [place] [address] Health Maintenance Due Date Last Done Comments Diabetes: Hemoglobin A1C 05/19/2024 024, 12/25/2023, 08/04/2023, Additional history exists Medicare Annual Wellness (AWV) 12/24/2024 0 12/25/2023, 11/14/2022, 11/05/2021 Diabetes: Urine Protein Screening 05/13/2025 05/13/2024, 05/13/2024, 12/25/2023, Additional history exists Diabetes: Retinopathy Screening 10/06/2025 10/07/2023, 09/18/2021, 09/13/2020, Additional history exists FIT Discontinued 08/07/2018 Colonoscopy Discontinued 01/11/2021, 12/07/2015 Colorectal Cancer Screening Discontinued Influenza Vaccine Completed 04/12/2024, , 04/13/2022, Additional history exists Pneumococcal Vaccine: 65+ Years Completed 04/12/2024, 09/21/2019, 06/29/2018, Additional history exists CT Colonography Discontinued FIT-DNA Discontinued FOBT Discontinued Sigmoidoscopy Discontinued Medical Devices Implanted Type Area Glazier Supervisor Device Identifier Shelf Expiration Date Model / Serial / Lot Stent Stent N/A: Heart Procedures Procedure Name Priority Date/Time Associated Diagnosis Comments CT CHEST WO IV CONTRAST Routine 11/09/2024 9:41 AM EDT Pulmonary nodule POCT GLYCOSYLATED HEMOGLOBIN (HGB A1C) Routine 02/17/2024 8:03 AM EDT MICROALBUMIN / CREATININE URINE RATIO Routine 12/25/2023 1:04 PM EDT Type 2 diabetes mellitus with foot ulcer, with long-term current use of insulin ([facility]) DIABETIC RETINOPATHY SCREENING - OU - BOTH EYES Routine 10/07/2023 3:46 PM EDT COLONOSCOPY Routine 01/11/2021 12:00 PM EDT Q - FECAL GLOBIN BY IMMUNO (MEDICARE) Routine 08/07/2018 from Last 3 Months or Most Recently Relevant to Health Maintenance Results * CT chest wo IV contrast (11/09/2024 9:41 AM EDT) Anatomical Region Laterality Modality Body, Chest Computed Tomogra phy 11/09/2024 5:41 PM EDT Narrative 11/09/2024 5:41 PM EDT EXAM: CT Chest Without IV Contrast. REASON FOR EXAM: Follow up pulmonary nodule. COMPARISON: CT chest August 05, 2024 TECHNIQUE: Helical scanning was obtained of the chest and reviewed in soft tissue and lung algorithm. Coronal reformations were reconstructed. CONTRAST: None FINDINGS: LUNGS: Calcified nodules/granulomas are visible in the right upper lobe of the lung. Subpleural bleb is seen medially in the left upper lobe. 3 mm nodule in the left upper lobe is seen and relatively stable. Tiny subpleural nodule posteriorly in the left lower lobe is stable. Soft tissue density nodule in the medial right lower lobe abutting the posterior mediastinum measures 2.4 x 2 cm and is therefore slightly increased in size from before. AIRWAYS: Major airways are clear. PLEURA: No pneumothorax or pleural effusion. MEDIASTINUM: No pathologically enlarged mediastinal or hilar lymph nodes. GREAT VESSELS: Atheromatous calcifications of the thoracic aortic arch and descending thoracic aorta are noted. Postop changes from coronary artery bypass graft surgery. HEART: Heart size is within normal limits for age. CORONARY ARTERY Calcifications: present AXILLA: No pathologically enlarged axillary lymph nodes. OSSEOUS STRUCTURES: The visualized skeletal structures are intact. UPPER ABDOMEN: Calcified granulomas are visible in the spleen. IMPRESSION: 1. Enlarging pulmonary nodule in the medial right lower lung, abutting the posterior mediastinum. This now measures up to 2.4 cm in diameter. PET/CT imaging evaluation recommended if not performed previously. Transcutaneous needle biopsy. 2. Several calcified granulomas in the lungs and spleen. *This report is generated using voice recognition reporting ([employer]). On occasion Fligooe erroneously drops words from the report or replaces the spoken word with similar sounding words. Please call with any questions/concerns regarding this report.* Dictated and transcribed 11/09/24dpd This report has been electronically signed and approved by the interpreting radiologist. Procedure Note Shad Ordaz MD - 11/09/2024 EXAM: CT Chest Without IV Contrast. REASON FOR EXAM: Follow up pulmonary nodule. COMPARISON: CT chest August 05, 2024 TECHNIQUE: Helical scanning was obtained of the chest and reviewed in softtissue and lung algorithm. Coronal reformations were reconstructed. CONTRAST: None FINDINGS: LUNGS: Calcified nodules/granulomas are visible in the right upper lobe ofthe lung. Subpleural bleb is seen medially in the left upper lobe. 3 mmnodule in the left upper lobe is seen and relatively stable. Tinysubpleural nodule posteriorly in the left lower lobe is stable. Softtissue density nodule in the medial right lower lobe abutting theposterior mediastinum measures 2.4 x 2 cm and is therefore slightlyincreased in size from before. AIRWAYS: Major airways are clear. PLEURA: No pneumothorax or pleural effusion. MEDIASTINUM: No pathologically enlarged mediastinal or hilar lymphnodes. GREAT VESSELS: Atheromatous calcifications of the thoracic aortic arch anddescending thoracic aorta are noted. Postop changes from coronary arterybypass graft surgery. HEART: Heart size is within normal limits for age. CORONARY ARTERY Calcifications: present AXILLA: No pathologically enlarged axillary lymph nodes. OSSEOUS STRUCTURES: The visualized skeletal structures are intact. UPPER ABDOMEN: Calcified granulomas are visible in the spleen. IMPRESSION: 1. Enlarging pulmonary nodule in the medial right lower lung, abutting theposterior mediastinum. This now measures up to 2.4 cm in diameter. PET/CTimaging evaluation recommended if not performed previously. Transcutaneousneedle biopsy. 2. Several calcified granulomas in the lungs and spleen. *This report is generated using voice recognition reporting ([employer]).On occasion Pavlok[employer] erroneously drops words from the report orreplaces the spoken word with similar sounding words. Please call with anyquestions/concerns regarding this report.* Dictated and transcribed 11/09/24/dpd This report has been electronically signed and approved by theinterpreting radiologist. us Reena Driscoll DO IMG CT PROCEDURES Final Resul t * POCT glycosylated hemoglobin (Hb A1C) docked device (02/17/2024 8:03 AM EDT) Hemoglobin A1C 6.4 Blood Venous blood specimen / Unknown 02/17/2024 8:03 AM EDT Ashley Bryant MD POINT OF CARE TEST ENTER/EDIT OR DERABLES Final Result * Microalbumin / creatinine urine ratio (12/25/2023 1:04 PM EDT) CREATININE, RANDOM URINE 80 20 - 320 mg/dL [facility] ALBUMIN, URINE 0.3 See Note: mg/dL [facility] Comment: Reference Range: Reference Range Not established ALBUMIN/CREATININE RATIO, RANDOM URINE 4 <30 mg/g creat [facility] Comment: The ADA defines abnormalities in albumin excretion as follows: Albuminuria Category Result (mg/g creatinine) Normal to Mildly increased <30 Moderately increased 30-299 Severely increased > OR = 300 The ADA recommends that at least two of three specimens collected within a 3-6 month period be abnormal before considering a patient to be within a diagnostic category. Urine Urine specimen obtained by clean catch procedure / Unknown 12/25/2023 1:04 PM EDT 12/25/2023 1:04 PM EDT Narrative [facility] - 12/26/2023 10:35 AM EDT SPLIT 12/25/2023 FROM [id number] Resulting Agency Comment Performing Organization Information Site ID: [id number] Name: [facility] Address: [address] [place] [address], [address] [place] [id number] Director: Bladimir Sosa MD Ashley Bryant MD LAB URINE ORDERABLES Final Resul t [facility] * Diabetic Retinopathy Screening - OU - Both Eyes (10/07/2023 3:46 PM EDT) Anatomical Region Laterality Modality Head Other us Ashley Bryant MD OPHTH PHOTOGRAPHY Final Result * Colonoscopy (01/11/2021 12:00 PM EDT) Anatomical Region Laterality Modality Endoscopy 01/11/2021 12:0 0 PM EDT Narrative 01/11/2021 12:00 PM EDT PERFORMED AT [facility] LOCATION:[id number] Procedure Note CONVERSION, GENERIC - 12/11/2022 PERFORMED AT [facility] LOCATION:[id number] Ashley Bryant MD ENDOSCOPY PROCEDURE ORDERABLES F inal Result * Q - FECAL GLOBIN BY IMMUNO (MEDICARE) (08/07/2018) RESULT NOT DETECTED NOT DETECTED [facility] 08/07/2018 us Ashley Bryant MD [facility] Final Result [facility] from Last 3 Months or Most Recently Relevant to Health Maintenance Insurance MEDICARE [employer] [place] Care Teams Acid Maker Relationship Specialty Start Date End Date Ashley Bryant MD [address] [place], [place] [id number] PCP - ACO Reach 12/19/22 Ashley Bryant MD [address] [place] [address] PCP - General Family Medicine 12/26/22
--- OUTSIDE RECORDS SUMMARY | 2024-12-23 10:56 | XMS_ITS | Encounter Summary ---
Author Organization [facility] tem Address [id number] [address] [place] [address] Care Team Providers Care Market Gardener Name Role Phone Ashley Bryant MD Primary Care Provider [phone] Encounter Details Date Type Department Care Team (Late st Contact Info) Description 06/26/2017 [facility] [address] [phone] Faby Gore RN Social History Tobacco Use Types Packs/Day Years Used Date Smoking Tobacco: Former Smokeless Tobacco: Never Alcohol Use Standard Drinks/Week Comments Yes 0 (1 standard drink = 0.6 oz pur e alcohol) rare Sex and Gender Information Value Date Recorded Sex Assigned at Male 10/19/2018 8:04 AM EDT Legal Sex Male 11:40 AM EDT Gender Identity Male 10/19/2018 8:04 AM EDT Sexual Orientation Straight 10/19/2018 8: 03 AM EDT documented as of this encounter Plan of Treatment Upcoming Encounters Date Type Department Care Team (Late st Contact Info) Description 01/04/2025 9:00 AM EDT Appointment [facility] [address] [place] [address] 01/04/2025 9:15 AM EDT Appointment [facility] [address] [place] [address] 01/04/2025 9:45 AM EDT Appointment [facility] - Cardiovascular [address] [place] [address] 01/04/2025 10:45 AM EDT Appointment [facility] [address] [place] [phone] 01/13/2025 9:00 AM EDT [facility] [address] [facility] [address] [place] [phone] Alphonso Juan MD [address] [facility] [address] [place] [address] 01/20/2025 9:15 AM EDT Office Visit [facility] [address] [place] [phone] Tito Barrios MD [address] [facility] [place] [address] 02/28/2025 9:45 AM EDT Office Visit [facility] Adult Endocrinology, A Department of [facility] [address] [phone] Cassy Gongora, TEACHER-HOBBER [address] [address] 06/20/2025 8:15 AM EST Office Visit [facility] Adult Endocrinology, A Department of [facility] [address] [phone] Franck Hurtado MD [address] [facility] [place] [address] documented as of this encounter Visit Diagnoses Not on filedocumented in this encounter Additional Health Concerns Infection Onset Date Last Indicated Resolved Time COVID-19 Rule-Out 08/25/2020 08/25/2020 08/25/2020 3:43 PM EST documented as of this encounter Care Teams Market Gardener Relationship Specialty Start Date End Date Ashley Bryant MD PCP - General Family Medicine 12/27/16 documented as of this encounter
--- OUTSIDE RECORDS SUMMARY | 2024-12-23 10:56 | XMS_ITS | Encounter Summary ---
Author Organization [facility] Address [address] [place] [address] Care Team Providers Care Local Intermodal Truck Driver Name Role Phone Ashley Bryant MD Unavailable Ashley Bryant MD Primary Care Provider [phone] Encounter Details Date Type Department Care Team (Late st Contact Info) Description 09/16/2024 Abstract [facility] [address] [place] [phone] Reena Driscoll DO [address] [place] [address] Social History Tobacco Use Types Packs/Day Years [...] often do you attend chur ch or bahai services? More than 4 times per year 12/31/2022 Do you belong to any clubs o r organizations such as samaritan groups, unions, fraternal or athletic groups, or [...] Recorded Patient Health Questionnaire-2 Score 0 12/18/2023 [facility] - Occupational Stress [...] place to sleep or slept in a correction (including now)? No 12/31/2022 Sex and Gender [...] EDT Office Visit [facility] [address] [place] [address] Reena Driscoll, DO [address] [place] [address] documented as of this encounter Visit Diagnoses Not on filedocumented in this encounter Care Teams Local Intermodal Truck Driver Relationship Specialty Start Date End Date Ashley Bryant MD [address] [place] [address] PCP - ACO Reach 12/19/22 Ashley Bryant MD [address] [place], [place] [phone] PCP - General Family Medicine 12/26/22 documented as of this encounter
--- OUTSIDE RECORDS SUMMARY | 2024-12-23 10:56 | XMS_ITS | Encounter Summary ---
Author Organization [facility] tem Address [facility] [place]-[id number] [address] [place] [address] Care Team Providers Care Utility Worker Film Processing Name Role Phone Ashley Bryant MD Primary Care Provider [phone] Encounter Details Date Type Department Care Team (Late st Contact Info) Description 12/22/2024 Documentation [facility] - Sean [facility] [place] [employer] [address] [phone] Betsy Lopes RN Social History Tobacco Use Types Packs/Day [...] AM EDT documented as of this encounter Progress Notes * Betsy Lopes RN - 12/22/2024 3:56 PM EDT for a return call. Moved appt to following week due to WR OOT documented in this encounter Plan of Treatment Upcoming Encounters Date Type Department Care Team (Late st Contact Info) Description 01/04/2025 9:00 AM EDT Appointment [facility] - Stress Imaging [address] [place] [address] 01/04/2025 9:15 AM EDT Appointment [facility] - Stress Imaging [address] [place] [address] 01/04/2025 9:45 AM EDT Appointment [facility] - Cardiovascular [address] [place] [address] 01/04/2025 10:45 AM EDT Appointment [facility] - Stress Imaging [address] [place] [address] 01/13/2025 9:00 AM EDT Office Visit [facility] - [facility] [address] [facility] [address] [place] [address] [place] [address] [place] [address] [address] [place] [address] 01/20/2025 9:15 AM EDT Office Visit [facility] Card[facility] [address] [place] [address] [facility] [address] [place] [address] Tito Barrios MD [address] [facility], [address] [place], [place] [phone] 02/28/2025 9:45 AM EDT [facility] Department of [facility] [address] [facility] 100 [place] [phone] Cassy Gongora, SMUTTER-TELEVISION ANALYZER [address] [facility] [address] [place] [address] 06/20/2025 8:15 AM EST Office Visit [facility] A Department of [facility] [address] [facility] [address] [place] [address] Franck Hurtado MD [address] [facility], [address] [place] [address] documented as of this encounter Visit Diagnoses Not on filedocumented in this encounter Additional Health Concerns Assessment Noted Time PHQ-9 Depression Total Score: 0 08/28/19 21 8:39 AM EST documented as of this encounter Care Teams Utility Worker Film Processing Relationship Specialty Start Date End Date Ashley Bryant MD PCP - General Family Medicine 12/27/16 documented as of this encounter
--- OUTSIDE RECORDS SUMMARY | 2024-12-23 10:56 | XMS_ITS | Encounter Summary ---
Author Organization [facility] tem Address [facility] [id number] [address] [place] [address] Care Team Providers Care Appraiser Timber Name Role Phone Ashley Bryant MD Primary Care Provider Encounter Details Date Type Department Care Team (Late st Contact Info) Description 12/09/2024 Orders Only [facility] - Sean [place] [address] [phone] Betsy Lopes RN Shortness of breath (Primary Dx) Social History Tobacco Use Types [...] Info) Description 01/04/2025 9:00 AM EDT Appointment [facility] - Stress Imaging [address] [place] [address] 01/04/2025 9:15 AM EDT Appointment [facility] - Stress Imaging [address] [place] [address] 01/04/2025 9:45 AM EDT Appointment [facility] - Cardiovascular [address] [place] [address] 01/04/2025 10:45 AM EDT Appointment [facility] - Stress Imaging [address] [place] [address] 01/13/2025 9:00 AM EDT Office Visit [facility] - [facility] [address] [facility] [address] [place] [address] [place] [address] [place] [address] [address] [place] [address] 01/20/2025 9:15 AM EDT Office Visit [facility] [address] [place] [address] Tito Barrios MD [address] [facility], [address] [place] [address] 02/28/2025 9:45 AM EDT Office Visit [facility], A Department of [facility] [address] [facility] [address] [place] [phone] Cassy Gongora, PUBLIC SAFETY DIRECTOR-ENGINEERING DESIGN MANAGER [address] [facility] [address] [place] [address] 06/20/2025 8:15 AM EST Office Visit [facility], A Department of [facility] [address] [facility] [address] [place] [address] Franck Hurtado MD [address] [facility], [address] [place] [address] Pending Results Name Type Priority Associated Diagnoses [...] Lung Volume) PFT Routine Shortness of breath 1 Occurrences starting 12/09/2024 until 12/09/2025 documented as of this encounter Visit Diagnoses Diagnosis Shortness of breath- Primary documented in this encounter Additional Health Concerns Assessment Noted Time PHQ-9 Depression Total Score: 0 08/28/19 8:39 AM EST documented as of this encounter Care Teams Appraiser Timber Relationship Specialty Start Date End Date Ashley Bryant MD PCP - General Family Medicine 12/27/16 documented as of this encounter
--- OUTSIDE RECORDS SUMMARY | 2024-12-23 10:56 | XMS_ITS | Encounter Summary ---
Author Organization [facility] Address [address] [facility] [place] [address] Care Team Providers Care Carton Filling Machine Operator Name Role Phone Ashley Bryant MD Unavailable Ashley Bryant MD Primary Care Provider [phone] Encounter Details Date Type Department Care Team (Late st Contact Info) Description 04/04/2023 Abstract [facility] [address] [place] [address] Ashley Bryant MD [address] [place], [place] [phone] Social History Tobacco Use Types Packs/Day Years [...] often do you attend chur ch or mosque services? More than 4 times per year 12/31/2022 Do you belong to any clubs o r organizations such as catholic groups, unions, fraternal or athletic groups, or [...] and heating? Not hard at all 12/31/2022 [facility] of Occupat ional Health - Occupational [...] place to sleep or slept in a fdc (including now)? No 12/31/2022 Sex and Gender Information Value Date Recorded Sex Assigned at Not on file Legal Sex Male 7:07 PM EDT Gender Identity Male 10/09/2022 7:07 PM EDT Sexual Orientation Not on file COVID-19 Exposure Response Date Recorded In the last 10 days, have yo u been in contact with someone who was confirmed or suspected to have Coronavirus/COVID-19? No / Unsure 04/02/2023 9:03 AM EDT documented as of this encounter Plan of Treatment Upcoming Encounters Date Type Department Care Team (Late st Contact Info) Description 02/16/2025 11:15 AM EDT Office Visit [facility] [address] [place] [address] Reena Driscoll, DO [address] [place] [address] documented as of this encounter Visit Diagnoses Not on filedocumented in this encounter Care Teams Carton Filling Machine Operator Relationship Specialty Start Date End Date Ashley Bryant MD [address] [place], [place] [phone] PCP - ACO Reach 12/19/22 Ashley Bryant MD [address] [place], [place] [phone] PCP - General Family Medicine 12/26/22 documented as of this encounter
--- OUTSIDE RECORDS SUMMARY | 2024-12-23 10:56 | XMS_ITS | Encounter Summary ---
Author Organization [facility] Address [address] [facility] [place] [address] Care Team Providers Care Laboratory Immunologist Name Role Phone Ashley Bryant MD Unavailable Ashley Bryant MD Primary Care Provider [phone] Encounter Details Date Type Department Care Team (Late st Contact Info) Description 06/19/2023 Abstract [facility] [address] [place] [phone] Jada Jiménez NP Social History Tobacco Use Types Packs/Day Years [...] 12/31/2022 How often do you attend chur or yazidism services? More than 4 times per year 12/31/2022 Do you belong to any clubs o r organizations such as hinduism groups, unions, fraternal or athletic groups, or [...] and heating? Not hard at all 12/31/2022 [facility] of Occupat ional Health - Occupational [...] place to sleep or slept in a nursing home (including now)? No 12/31/2022 Sex and Gender [...] suspected to have Coronavirus/COVID-19? No / Unsure 06/19/2023 10:17 AM EST documented as of this encounter Plan of Treatment Upcoming Encounters Date Type Department Care Team (Late st Contact Info) Description 02/16/2025 11:15 AM EDT Office Visit [facility] [address] [place] [address] Reena Driscoll, DO [address] [place] [address] documented as of this encounter Visit Diagnoses Not on filedocumented in this encounter Care Teams Laboratory Immunologist Relationship Specialty Start Date End Date Ashley Bryant MD [address] [place], [place] [phone] PCP - ACO Reach 12/19/22 Ashley Bryant MD [address] [place], [place] [phone] PCP - General Family Medicine 12/26/22 documented as of this encounter
--- OUTSIDE RECORDS SUMMARY | 2024-12-23 10:56 | XMS_ITS | Encounter Summary ---
Author Organization [facility] Address [address] [place] [address] Care Team Providers Care Sidewalk Inspector Name Role Phone Ashley Bryant MD Unavailable Ashley Bryant MD Primary Care Provider [phone] Reason for Visit * Reason Comments Med Refill Encounter Details Date Type Department Care Team (Late st Contact Info) Description 04/14/2023 Refill [facility] [address] [facility] 150 [place] [address] Miguelito Suarez DO [address] [facility] [address] [place] [address] Acute pain of left knee Social History Tobacco Use Types Packs/Day Years [...] any clubs o r organizations such as restorationist groups, unions, fraternal or athletic groups, or [...] and heating? Not hard at all 12/31/2022 [facility] [place] of Occupat ional Health - Occupational Stress [...] place to sleep or slept in a intermediate (including now)? No 12/31/2022 Sex and Gender [...] EDT Office Visit [facility] [address] [place] [address] Reena Driscoll, DO [address] [facility] [place] [address] documented as of this encounter Visit Diagnoses Diagnosis Acute pain of left knee documented in this encounter Care Teams Sidewalk Inspector Relationship Specialty Start Date End Date Ashley Bryant MD [address] [place], [place] [phone] PCP - ACO Reach 12/19/22 Ashley Bryant MD [address] [place], [place] [address] PCP - General Family Medicine 12/26/22 documented as of this encounter
--- OUTSIDE RECORDS SUMMARY | 2024-12-23 10:56 | XMS_ITS | Continuity of Care Document ---
Author Organization [facility] Address [address] [place] [address] Problems Unknown Problems Results Test Value / Unit Interpretation Reference Ran ge SARS-COV-2 (COVID19), NAAT[[id number]] Collected: 08/25/2020 05:13 PM Specimen Received: 08/26/2020 05:21 PM SARS-CoV-2 INTERPRETATION [[id number]] Negative Yovana l See Note SARS-CoV-2 RNA NOT DETECTEDN egative results do not preclude SARS-CoV-2 infection and should notbe used as the sole basis for patient management decisions. Negativeresults must be combined with clinical observations, patient history,and epidemiological information. Optimum specimen types and timingfor peak viral levels during infections caused by SARS-CoV-2 have notbeen determined. Collection of multiple specimens or types ofspecimens may be necessary to detect virus. Improper specimencollection and handling, sequence variability under primers/probes,or organism present below the limit of detection may lead to falsenegative results. Positive and negative predictive values oftesting are highly dependent on prevalence. False negative testresults are more likely when prevalence is high. SOURCE [[id number]] NASOPHARYNGEAL Normal Note: Methodology is [employer] Real-Time RT-PCR. The expectedresult or reference range is NEGATIVE (Not Detected). For more information regarding COVID-19 testing to include clinicalinformation, methodology detail, intended use, FDA authorization andrecommended fact sheets for patients or healthcare providers, see NewBroadersheet Announcement: SARS-CoV-2 (COVID-19) by NAAT at URL below (note,fact sheets are provided by method given in report:https://www.[employer]/clinicians/client-communications/ Alternatively, see downloadable PDF fact sheet at:https://www.[employer]/VOIWA-04-WG-PCR Allergies, adverse reactions, alerts No known allergies and adverse reactions Medications No administered medications reported Vital Signs No vital signs reported Social History No smoking Hx information available
--- OUTSIDE RECORDS SUMMARY | 2024-12-23 10:56 | XMS_ITS | Encounter Summary ---
Author Organization [facility] Address [address] [place] [address] Care Team Providers Care Elementary Secretary Name Role Phone Ashley Bryant MD Unavailable Ashley Bryant MD Primary Care Provider [phone] Encounter Details Date Type Department Care Team (Late st Contact Info) Description 10/12/2024 Orders Only [facility] [address] [facility] [place] [address] Gianna Wen MA Lung nodule, solitary; Pulmonary nodule Social History Tobacco Use Types Packs/Day Years [...] often do you attend chur ch or jainism services? More than 4 times per year [...] Recorded Patient Health Questionnaire-2 Score 0 12/18/2023 [facility] of Occupat ional Health - Occupational [...] place to sleep or slept in a residential (including now)? No 12/31/2022 Sex and Gender [...] EDT Office Visit [facility] [address] [place] [address] Reena Driscoll, DO [address] [place] [address] documented as of this encounter Procedures Procedure Name Priority Date/Time Associated Diagnosis Comments CT CHEST WO IV CONTRAST Routine 11/09/2024 9:41 AM EDT Pulmonary nodule documented in this encounter Results * CT chest wo IV contrast [...] report is generated using voice recognition reporting (Path). On occasion [employer] erroneously drops words from the report or replaces the spoken word with similar sounding words. Please call with any questions/concerns regarding this report.* Dictated and transcribed 11/09/24/dpd [...] report is generated using voice recognition reporting (Path).On occasion Path erroneously drops words from the report orreplaces the spoken word with similar sounding words. Please call with anyquestions/concerns regarding this report.* Dictated and transcribed 11/09/24/dpd This report has been electronically signed and approved by theinterpreting radiologist. us Reena Driscoll DO IMG CT PROCEDURES Final Resul t documented in this encounter Visit Diagnoses Diagnosis Lung nodule, solitary Pulmonary nodule Other diseases of lung, not elsewhere classified documented in this encounter Care Teams Elementary Secretary Relationship Specialty Start Date End Date Ashley Bryant MD [address] [place] [address] PCP - ACO Reach 12/19/22 Ashely Bryant MD [address] [place] [address] PCP - General Family Medicine 12/26/22 documented as of this encounter
--- OUTSIDE RECORDS SUMMARY | 2024-12-23 10:56 | XMS_ITS | Encounter Summary ---
Author Organization [facility] Address [address] [facility] [place] [address] Care Team Providers Care Sheet Metal Layout Mechanic Name Role Phone Ashley Bryant MD Unavailable Ashley Bryant MD Primary Care Provider [phone] Encounter Details Date Type Department Care Team (Late st Contact Info) Description 10/14/2023 Orders Only [facility] [address] [place] [address] Ashley Bryant MD [address] [place], [place] [phone] Social History Tobacco Use Types Packs/Day Years [...] often do you attend chur ch or yazdanism services? More than 4 times per year 12/31/2022 Do you belong to any clubs o r organizations such as judaism groups, unions, fraternal or athletic groups, or [...] and heating? Not hard at all 12/31/2022 [facility] of Occupat ional Health - Occupational [...] place to sleep or slept in a snf (including now)? No 12/31/2022 Sex and Gender [...] EDT Office Visit [facility] [address] [place] [address] Reena Driscoll, DO [address] [place] [address] documented as of this encounter Procedures Procedure Name Priority Date/Time Associated Diagnosis Comments DIABETIC RETINOPATHY SCREENING - OU - BOTH EYES Routine 10/07/2023 3:46 PM EDT documented in this encounter Results * Diabetic Retinopathy Screening - OU - Both Eyes (10/07/2023 3:46 PM EDT) Anatomical Region Laterality Modality Head Other Ashley Bryant MD OPHTH PHOTOGRAPHY Final Result documented in this encounter Visit Diagnoses Not on filedocumented in this encounter Care Teams Sheet Metal Layout Mechanic Relationship Specialty Start Date End Date Ashley Bryant MD [address] [place] [address] PCP - ACO Reach 12/19/22 Ashley Bryant MD [address] [place] [address] PCP - General Family Medicine 12/26/22 documented as of this encounter
--- OUTSIDE RECORDS SUMMARY | 2024-12-23 10:56 | XMS_ITS | Encounter Summary ---
Author Organization [facility] Address [facility] [place][id number] [address] [place] [place] [address] Care Team Providers Care Petroleum Analyst Name Role Phone Ashley Bryant MD Primary Care Provider [phone] Encounter Details Date Type Department Care Team (Late st Contact Info) Description 09/01/2024 Telephone [facility] [address] [place] [address] Iona Chavez MD [address], [facility] [address] [place] [address] Social History Tobacco Use Types Packs/Day Years [...] got money to buy more. Never True 05/20/2024 Within the past 12 months th e food we bought just didn't last and we didn't have money to get more. Never True 05/20/2024 Purpose - Life Answer Date Recorded I [...] encounter Miscellaneous Notes * Telephone Encounter - Pili Goel - 09/01/2024 11:57 AM EST Patient called ad he wanted to No the size of his ANEURYSM he scheduled appointment in September [phone] * Telephone Encounter - Jessica Weber LPN - 09/01/2024 11:57 AM EST Spoke with patient his questions were answered, account underwriter will find out if pt should have a scan priorto his f/u appt that is scheduled in September. Patient will be called tomorrow. Patient agrees with this * Telephone Encounter - Iona Chavez MD - 09/01/2024 11:57 AM EST Patient has an appt next week with Dr.M Chavez, the carotid results will be gone over at appt. documented in this encounter Plan of Treatment Upcoming Encounters Date Type Department Care Team (Late st Contact Info) Description 01/04/2025 9:00 AM EDT Appointment [facility] - Stress Imaging [address] [place] [address] 01/04/2025 9:15 AM EDT Appointment [facility] - Stress Imaging [address] [place] [address] 01/04/2025 9:45 AM EDT Appointment [facility] - Cardiovascular [address] [place] [address] 01/04/2025 10:45 AM EDT Appointment [facility] - Stress Imaging [address] [place] [address] 01/13/2025 9:00 AM EDT Office Visit [facility] - Sean [facility] [address] [place] [facility] [address] [place] [address] Alphonso Juan MD [address] [facility] [address] [place] [address] 01/20/2025 9:15 AM EDT Office Visit [facility] [address] [facility] [address] [place] [address] Tito Barrios MD [address] [facility], [address] [place] [address] 02/28/2025 9:45 AM EDT Office Visit [facility], A Department of [facility] [address] [facility] 100 [place] [address] Cassy Gongora, REGISTERED REPRESENTATIVE-ANGLE ROLL OPERATOR [address] [facility] 100 [place] [address] 06/20/2025 8:15 AM EST Office Visit [facility], A Department of [facility] [address] [facility] 100 [place] [address] Franck Hurtado MD [address] [facility], [address] [place] [address] documented as of this encounter Visit Diagnoses Not on filedocumented in this encounter Additional Health Concerns Assessment Noted Time PHQ-9 Depression Total Score: 0 08/28/19 8:39 AM EST documented as of this encounter Care Teams Petroleum Analyst Relationship Specialty Start Date End Date Ashley Bryant MD PCP - General Family Medicine 12/27/16 documented as of this encounter
--- OUTSIDE RECORDS SUMMARY | 2024-12-23 10:56 | XMS_ITS | Encounter Summary ---
Author Organization [facility] tem Address [id number] [address] [place] [address] Care Team Providers Care Water And Sewer Systems Supervisor Name Role Phone Ashley Bryant MD Primary Care Provider [phone] Encounter Details Date Type Department Care Team (Late st Contact Info) Description 12/13/2024 Documentation [facility] - Sean [facility] [place] [address] [phone] Betsy Lopes RN Social History Tobacco Use [...] Progress Notes * Betsy Lopes RN - 12/13/2024 2:11 PM EDT Stress test rescheduled per patient request so that he may serve on jury duty. Pt notified of new date/time. documented in this encounter Plan of Treatment Upcoming Encounters Date Type Department Care Team (Late st Contact Info) Description 01/04/2025 9:00 AM EDT Appointment [facility] - Stress Imaging [address] [place] [address] 01/04/2025 9:15 AM EDT Appointment [facility] - Stress Imaging [address] [place] [address] 01/04/2025 9:45 AM EDT Appointment [facility] - Cardiovascular [address] [place] [address] 01/04/2025 10:45 AM EDT Appointment [facility] - Stress Imaging [address] [place] [address] 01/13/2025 9:00 AM EDT [facility] [address] [facility] [address] [place] [address] [place] [address] [place] [address] [address] [place] [address] 01/20/2025 9:15 AM EDT Office Visit [facility] [address] [place] [address] [facility] [address] [place] [address] Tito Barrios MD [address] [facility], [address] [place] [address] 02/28/2025 9:45 AM EDT [facility] A Department of [facility] [address] [facility] [address] [place] [address] Cassy Gongora, SILK FINISHER-AIR QUALITY MANAGER [address] [facility] [address] [place] [address] 06/20/2025 8:15 AM EST Office Visit [facility] [address] [facility] [address] [place] [address] Franck Hurtdao MD [address] [facility], [address] [place] [address] documented as of this encounter Visit Diagnoses Not on filedocumented in this encounter Additional Health Concerns Assessment Noted Time PHQ-9 Depression Total Score: 0 08/28/19 21 8:39 AM EST documented as of this encounter Care Teams Water And Sewer Systems Supervisor Relationship Specialty Start Date End Date Ashley Bryant MD PCP - General Family Medicine 12/27/16 documented as of this encounter
--- OUTSIDE RECORDS SUMMARY | 2024-12-23 10:56 | XMS_ITS | Encounter Summary ---
Author Organization [facility] Address [address] [place] [address] Care Team Providers Care Dry Charge Process Attendant Name Role Phone Ashley Bryant MD Unavailable Ashley Bryant MD Unavailable Ashley Bryant MD Primary Care Provider [phone] Encounter Details Date Type Department Care Team (Late st Contact Info) Description 10/09/2017 Abstract [facility] [address] [place] [phone] Sharon Martinez, [facility] [place] [address] [place] [address] Social History Tobacco Use Types Packs/Day Years Used Date Smoking Tobacco: Never Assessed Sex and Gender Information Value Date Recorded Sex Assigned at Not on file Legal Sex Male 7:07 PM EDT Gender Identity Male 10/09/2022 7:07 PM EDT Sexual Orientation Not on file documented as of this encounter Plan of Treatment Upcoming Encounters Date Type Department Care Team (Late st Contact Info) Description 02/16/2025 11:15 AM EDT Office Visit [facility] [address] [place] [phone] Reena Driscoll, [address] [place] [address] documented as of this encounter Visit Diagnoses Not on filedocumented in this encounter Care Teams Dry Charge Process Attendant Relationship Specialty Start Date End Date Ashley Bryant MD [address] [facility] [place] [address] [facility] Attributed Provider 04/27/22 07/26/22 Ashley Bryant MD [address] [place], [place] [id number] PCP - ACO Reach 12/19/22 Ashley Bryant MD [address] [facility] [address] [place], [place] [id number] PCP - General Family Medicine 12/26/22 documented as of this encounter
--- OUTSIDE RECORDS SUMMARY | 2024-12-23 10:56 | XMS_ITS | Encounter Summary ---
Author Organization [facility] Address [address] [place] [address] Care Team Providers Care Final Rail Cutter Name Role Phone Ashlye Bryant MD Unavailable Ashley Bryant MD Primary Care Provider [phone] Encounter Details Date Type Department Care Team (Latest Contact Info) Description 12/15/2024 Travel Social History Tobacco Use Types Packs/Day Years [...] often do you attend chur ch or mandaen services? More than 4 times per year 12/31/2022 Do you belong to any clubs o r organizations such as christian groups, unions, fraternal or athletic groups, or [...] Recorded Patient Health Questionnaire-2 Score 0 12/18/2023 [facility] - [...] place to sleep or slept in a longterm (including now)? No 12/31/2022 Sex and Gender [...] EDT Office Visit [facility] [address] [place] [address] Reena Driscoll, DO [address] [place] [address] documented as of this encounter Visit Diagnoses Not on filedocumented in this encounter Care Teams Final Rail Cutter Relationship Specialty Start Date End Date Ashley Bryant MD [address] [place] [address] PCP - ACO Reach 12/19/22 Ashley Bryant MD [address] [place], [place] [id number] PCP - General Family Medicine 12/26/22 documented as of this encounter
--- OUTSIDE RECORDS SUMMARY | 2024-12-23 10:56 | XMS_ITS | Encounter Summary ---
Author Organization [facility] Address [address] [place] [address] Care Team Providers Care Industrial Paramedic Name Role Phone Ashley Bryant MD Unavailable Ashley Bryant MD Primary Care Provider [phone] Reason for Visit * Reason Comments Med Refill Encounter Details Date Type Department Care Team (Late st Contact Info) Description 12/13/2024 Refill [facility] [address] [place] [address] Ashley Bryant MD [address], [place] [id number] Mixed hyperlipidemia (CMS/HCC) Social History Tobacco Use Types Packs/Day Years [...] often do you attend chur ch or alevism services? More than 4 times per year [...] Patient Health Questionnaire-2 Score 0 12/18/2023 [facility] - Occupational [...] place to sleep or slept in a chcf (including now)? No 12/31/2022 Sex and Gender [...] AM EDT Office Visit [facility] [address] [place] [address] Reena Driscoll, DO [address] [place] [address] documented as of this encounter Visit Diagnoses Diagnosis Mixed hyperlipidemia (CMS/HCC) Mixed hyperlipidemia documented in this encounter Care Teams Industrial Paramedic Relationship Specialty Start Date End Date Ashley Bryant MD [address] [place], [place] [phone] PCP - ACO Reach 12/19/22 Ashley Bryant MD [address] [place], [place] [phone] PCP - General Family Medicine 12/26/22 documented as of this encounter
--- OUTSIDE RECORDS SUMMARY | 2024-12-23 10:56 | XMS_ITS | Encounter Summary ---
Author Organization [facility] Address [address] [facility] [place] [address] Care Team Providers Care Orthopedic Radiologic Technologist Name Role Phone Ashley Bryant MD Unavailable Ashley Bryant MD Primary Care Provider [phone] Encounter Details Date Type Department Care Team (Late st Contact Info) Description 08/31/2024 External Result Encounter [facility] [address] [place] [address] Ashley Bryant MD [address] [place], [place] [phone] Social History Tobacco Use Types Packs/Day Years [...] often do you attend chur ch or church services? More than 4 times per year 12/31/2022 Do you belong to any clubs o r organizations such as sikh groups, unions, fraternal or athletic groups, or [...] Recorded Patient Health Questionnaire-2 Score 0 12/18/2023 [facility]at ional [facility] - Occupational [...] AM EDT Office Visit [facility] [address] [place] [address] Reena Driscoll, DO [address] [place] [address] documented as of this encounter Procedures Procedure Name Priority Date/Time Associated Diagnosis Comments PET/CT SKULL BASE TO MID THIGH 08/31/2024 1:52 PM EST documented in this encounter Results * PET/CT skull base to mid thigh (08/31/2024 1:52 PM EST) Anatomical Region Laterality Modality Body Computed Tomogra phy 08/31/2024 1:52 PM EST Narrative 08/31/2024 1:51 PM EST THIS EXAM WAS PERFORMED AT [facility] PET CT SKULL TO THIGH REASON FOR EXAM: Lung mass COMPARISON: None PROCEDURE: After a suitable fast, the patient was injected with 8.8 mCi of F-18- fluorodeoxyglucose (FDG) intravenously, followed by whole body images from the base of the skull to the mid-thigh on the dedicated PET/CT system at 60 minutes post tracer injection. The data volume is reformatted into transverse, coronal and sagittal planes, as well as 3-dimensional volume-rendered (MIP) display. Blood glucose: 108 mg/dl. Mediastinal blood pool activity (SUV): FINDINGS: NECK: Normal physiologic activity in the imaged SPINNING OPERATOR. No suspicious hypermetabolic activity within cervical lymph nodes or the thyroid. Low Dose CT Images: No other acute or significant finding. CHEST: A 2 cm nodule in the medial right lower lobe demonstrates no significant FDG activity (maximum SUV 0.9). No hypermetabolic or otherwise suspicious lung nodule. Low Dose CT Images: Small hiatal hernia. Median sternotomy with [place] coronary calcification. Calcified granulomas with calcified right hilar lymph nodes. ABDOMEN/PELVIS: Normal physiologic activity in the liver, spleen, and genitourinary tract. No hypermetabolic lesions in the liver, spleen, adrenals, lymph nodes. Low Dose CT Images: Infrarenal aortic aneurysm, 4.6 cm. Dilated common iliac arteries. Probable sludge in the gallbladder neck. OSSEOUS STRUCTURES: No suspicious osseous hypermetabolism. Low Dose CT Images: No other acute or significant finding. IMPRESSION: A 2.0 cm medial right lower lobe nodule demonstrates no significant FDG uptake. Benign/indolent etiology is favored. Recommend CT surveillance. Infrarenal aortic aneurysm, 4.6 cm. Subspecialty follow-up/surveillance recommended. All CT scans at this facility use dose modulation, iterative reconstruction, and/or weight based dosing when appropriate to reduce radiation dose to as low as reasonably achievable Finalized by Rashi Johns MD on 08/31/2024 1:51 PM Procedure Note Radiology, Radiologist, - 08/31/2024 THIS EXAM WAS PERFORMED AT [facility] PET CT SKULL TO THIGH REASON FOR EXAM: Lung mass COMPARISON: None PROCEDURE: After a suitable fast, the patient was injected with 8.8 mCi of X-94-udgdoafbtelarkqdaf (FDG) intravenously, followed by whole body images fromthe base of the skull to the mid-thigh on the dedicated PET/CT system at60 minutes post tracer injection. The data volume is reformatted into transverse, coronal and sagittalplanes, as well as 3-dimensional volume-rendered (MIP) display. Blood glucose: 108 mg/dl. Mediastinal blood pool activity (SUV): FINDINGS: NECK: Normal physiologic activity in the imaged SPINNING OPERATOR. No suspicious hypermetabolic activity within cervical lymph nodes or thethyroid. Low Dose CT Images: No other acute or significant finding. CHEST: A 2 cm nodule in the medial right lower lobe demonstrates no significantFDG activity (maximum SUV 0.9). No hypermetabolic or otherwise suspiciouslung nodule. Low Dose CT Images: Small hiatal hernia. Median sternotomy with nativecoronary calcification. Calcified granulomas with calcified right hilarlymph nodes. ABDOMEN/PELVIS: Normal physiologic activity in the liver, spleen, and genitourinarytract. No hypermetabolic lesions in the liver, spleen, adrenals, lymph nodes. Low Dose CT Images: Infrarenal aortic aneurysm, 4.6 cm. Dilated common iliac arteries.Probable sludge in the gallbladder neck. OSSEOUS STRUCTURES: No suspicious osseous hypermetabolism. Low Dose CT Images: No other acute or significant finding. IMPRESSION: A 2.0 cm medial right lower lobe nodule demonstrates no significant FDGuptake. Benign/indolent etiology is favored. Recommend CTsurveillance. Infrarenal aortic aneurysm, 4.6 cm. Subspecialty follow- up/surveillancerecommended. All CT scans at this facility use dose modulation, iterativereconstruction, and/or weight based dosing when appropriate to reduceradiation dose to as low as reasonably achievable Finalized by Rashi Johns MD on 08/31/2024 1:51 PM Ashley Bryant MD IMG CT PROCEDURES Final Result documented in this encounter Visit Diagnoses Not on filedocumented in this encounter Care Teams Orthopedic Radiologic Technologist Relationship Specialty Start Date End Date Ashley Bryant MD [address] [place] [address] PCP - ACO Reach 12/19/22 Ashley Bryant MD [address] [place] [address] PCP - General Family Medicine 12/26/22 documented as of this encounter
--- OUTSIDE RECORDS SUMMARY | 2024-12-23 10:56 | XMS_ITS | Encounter Summary ---
Author Organization [facility] Address [address] [facility] [place] [address] Care Team Providers Care Grid Caster Name Role Phone Ashley Bryant MD Unavailable Ashley Bryant MD Primary Care Provider [phone] Encounter Details Date Type Department Care Team (Late st Contact Info) Description 04/01/2023 External Result Encounter [facility] [address] [facility] [address] [place] [address] Miguelito Suarez DO [address] [facility] [address] [place] [address] Social History Tobacco Use Types Packs/Day Years [...] often do you attend chur ch or christianity services? More than 4 times per year 12/31/2022 Do you belong to any clubs o r organizations such as zoroastrian groups, unions, fraternal or athletic groups, or [...] and heating? Not hard at all 12/31/2022 [facility]at ional Health - [...] place to sleep or slept in a [place] (including now)? No 12/31/2022 Sex and Gender [...] EDT Office Visit [facility] [address] [place] [address] Reena Driscoll, DO [address] [place] [address] documented as of this encounter Procedures Procedure Name Priority Date/Time Associated Diagnosis Comments BEDSIDE GLUCOSE LAB ([facility]) Routine 04/02/2023 11:16 AM EDT XR CHEST 2 VIEWS 04/01/2023 6:18 PM EDT documented in this encounter Results * (ABNORMAL) BEDSIDE GLUCOSE LAB ([facility]) (04/02/2023 11:16 AM EDT) BEDSIDE GLUCOSE LAB 148(H) 65 - 99 mg/dL [facility] 04/02/2023 11:1 6 AM EDT 04/02/2023 11:21 AM EDT Miguelito Suarez DO LAB BLOOD ORDERABLES Final Result [facility] * XR chest 2 views (04/01/2023 6:18 PM EDT) Anatomical Region Laterality Modality Chest Radiographic January ging 04/01/2023 6:18 PM EDT Narrative 04/01/2023 6:17 PM EDT THIS EXAM WAS PERFORMED AT [facility] PA and lateral chest: HISTORY: Preoperative exam. Anesthesia clearance. 2 views the chest are obtained. Cardiac and mediastinal contours are within normal limits. No consolidation or effusion. No pneumothorax is seen. Osseous structures appear intact. IMPRESSION: No acute cardiopulmonary findings Finalized by Geoffrey Jenkins MD on 04/01/2023 6:17 PM Procedure Note Radiology, Radiologist, MD - 04/01/2023 THIS EXAM WAS PERFORMED AT [facility] PA and lateral chest: HISTORY: Preoperative exam. Anesthesia clearance. 2 views the chest are obtained. Cardiac and mediastinal contours arewithin normal limits. No consolidation or effusion. No pneumothorax isseen. Osseous structures appear intact. IMPRESSION: No acute cardiopulmonary findings Finalized by Geoffrey Jenkins MD on 04/01/2023 6:17 PM Miguelito Suarez DO IMG XR PROCEDURES Final Re sult documented in this encounter Visit Diagnoses Not on filedocumented in this encounter Care Teams Grid Caster Relationship Specialty Start Date End Date Ashley Bryant MD [address] [facility] [place] [address] PCP - ACO Reach 12/19/22 Ashley Bryant MD [address] [place] [address] PCP - General Family Medicine 12/26/22 documented as of this encounter
--- OUTSIDE RECORDS SUMMARY | 2024-12-23 10:56 | XMS_ITS | Encounter Summary ---
Author Organization [facility] Address [address] [facility] [place] [address] Care Team Providers Care Dialysis Equipment Technician Name Role Phone Ashley Bryant MD Unavailable Ashley Bryant MD Primary Care Provider [phone] Encounter Details Date Type Department Care Team (Late st Contact Info) Description 12/21/2024 Abstract [facility] [address] [place] [phone] Kalyn Anaya MA Social History Tobacco Use Types Packs/Day Years [...] often do you attend chur ch or uatsdin services? More than 4 times per year 12/31/2022 Do you belong to any clubs o r organizations such as presybeterian groups, unions, fraternal or athletic groups, or [...] Recorded Patient Health Questionnaire-2 Score 0 12/18/2023 [facility] Occupat ional [...] EDT Office Visit [facility] [address] [place] [address] Reena Driscoll, DO [address] [place] [address] documented as of this encounter Visit Diagnoses Not on filedocumented in this encounter Care Teams Dialysis Equipment Technician Relationship Specialty Start Date End Date Ashley Bryant MD [address] [place] [address] PCP - ACO Reach 12/19/22 Ashley Bryant MD [address] [place], [place] [phone] PCP - General Family Medicine 12/26/22 documented as of this encounter
--- OUTSIDE RECORDS SUMMARY | 2024-12-23 10:56 | XMS_ITS | Encounter Summary ---
Author Organization [facility] [employer] Address [id number] [address] [place] [address] Care Team Providers Care Key Sander Name Role Phone Ashley Bryant MD Primary Care Provider [phone] Reason for Visit * Reason Onset Date Comments medication remind 02/20/2021 Encounter Details Date Type Department Care Team (Late st Contact Info) Description 02/20/2021 [facility] [address] [facility] [address] [phone] Betsy Perez MA medication remind Social History Tobacco Use Types Packs/Day Years Used Date Smoking Tobacco: Former Smokeless Tobacco: Never Alcohol Use Standard Drinks/Week Comments Yes 0 (1 standard drink = 0.6 oz pur e alcohol) rare PHQ-2 Answer Date Recorded Total Score 0 08/28/2020 Childcare Answer Date Recorded Childcare Unknown 01/06/2019 Employment Answer Date Recorded Employment Unknown 01/06/2019 Purpose - Life Answer Date Recorded I have a purpose and direction in my life. Stron gly Agree 08/28/2020 Sex and Gender Information Value Date Recorded Sex Assigned at Male 10/19/2018 8:04 AM EDT Legal Sex Male 11:40 AM EDT Gender Identity Male 10/19/2018 8:04 AM EDT Sexual Orientation Straight 10/19/2018 8: 03 AM EDT COVID-19 Exposure Response Date Recorded In the last month, have you been in contact with someone who was confirmed or suspected to have Coronavirus / COVID-19? No / Unsure 02/20/2021 2:49 PM EDT documented as of this encounter Miscellaneous Notes * Telephone Encounter - Betsy Perez MA - 02/20/2021 8:31 AM EDT Called patient to remind them to bring their most current copy of medication list with them to their appt. Patient verbalizes understanding. documented in this encounter Plan of Treatment Upcoming Encounters Date Type Department Care Team (Late st Contact Info) Description 01/04/2025 9:00 AM EDT Appointment [facility] [address] [place] [address] 01/04/2025 9:15 AM EDT Appointment [facility] [address] [place] [address] 01/04/2025 9:45 AM EDT Appointment [facility] - Cardiovascular [address] [place] [address] 01/04/2025 10:45 AM EDT Appointment [facility] [address] [place] [address] 01/13/2025 9:00 AM EDT Office Visit [facility] [address] [facility] [address] [place] [address] [place] [address] [place] [address] [address] [place] [address] 01/20/2025 9:15 AM EDT Office Visit [facility] [address] [place] [address] [address] [place] [phone] Tito Barrios MD [address] [facility], [address] [place], [place] [phone] 02/28/2025 9:45 AM EDT Office Visit [facility] A Department of [facility] [address] [facility] [address] [place] [phone] Cassy Gongora, TELEPHONE MESSENGER-FIRST AID TEACHER [address] [facility] [address] [place] [address] 06/20/2025 8:15 AM EST [facility] Department of [facility] [address] [facility] [address] [place] [phone] Franck Hurtado MD [address] [facility], [address] [place] [address] documented as of this encounter Visit Diagnoses Not on filedocumented in this encounter Additional Health Concerns Assessment Noted Time PHQ-9 Depression Total Score: 0 08/28/19 21 8:39 AM EST documented as of this encounter Care Teams Key Sander Relationship Specialty Start Date End Date Ashley Bryant MD PCP - General Family Medicine 12/27/16 documented as of this encounter
--- OUTSIDE RECORDS SUMMARY | 2024-12-23 10:56 | XMS_ITS | Clinical Summary ---
Author Organization [employer] tem Address [id number] [address] [place] [address] Care Team Providers Care Visitor Services Specialist Name Role Phone Ashley Bryant MD Primary Care Provider Allergies Active Allergy Reactions Criticality Noted Date Comments Amoxicillin Rash Low 06/08/2014 Amoxicillin Trihydrate Rash Medium 07/09/2016 Medications omega-3 fatty acids-fish oil 300-1,000 mg capsule Take 1 mg by mouth in the morning. Active melatonin (CIRCADIN) tablet Take 1 tablet (3 mg total) by mouth nightly. Active cholecalciferol, vitamin D3, 2,000 units tablet Take 1 tablet (2,000 Units total) by mouth in the morning. Active acetaminophen (TYLENOL) 500 mg tablet Take 1 tablet (500 mg total) by mouth every 6 (six) hours as needed for pain. Active aspirin 81 mg Take 1 tablet (81 mg total) by mouth in the morning. Active cyanocobalamin 2000 MCG tablet Take 1 tablet (2,000 mcg total) by mouth in the morning. Active FeroSuL 325 mg (65 mg iron) tablet prn 3 Active insulin degludec (TRESIBA FLEXTOUCH U-200) 200 unit/mL (3 mL) insulin penIndications:Type 2 diabetes mellitus with hyperglycemia, with long-term current use of insulin ([facility]) 44 units daily as directed. 45 mL 3 4 Active pen needle, diabetic (BD GONZÁLEZ 2ND GEN PEN NEEDLE) 32 gauge x needleIndications:T ype 2 diabetes mellitus with hyperglycemia, with long-term current use of insulin ([facility]) Use to inject insulins 5 times daily 500 each 3 4 Active MOUNJARO 2.5 mg/0.5 mL pen injectorIndications :Type 2 diabetes mellitus with hyperglycemia, with long-term current use of insulin ([facility]) Inject 2.5 mg under the skin once a week. 2 mL 11 4 Active insulin aspart U-100 (NovoLOG Flexpen U-100 Insulin) 100 unit/mL (3 mL) insulin penIndications:Type 2 diabetes mellitus with hyperglycemia, with long-term current use of insulin ([facility]) Inject 16 Units under the skin in the morning and 16 Units at noon and 16 Units in the evening. Inject with meals. 45 mL 3 4 Active nitroglycerin (NITROSTAT) 0.4 MG SL tabletIndications:S /P CABG x 3,Status post insertion of drug-eluting stent into right coronary artery for coronary artery disease,Coronary artery disease involving [place] coronary artery of skull [place] heart without angina pectoris PLACE 1 TABLET UNDER THE TONGUE EVERY 5 MINUTES NEEDED FOR CHEST PAIN 25 tablet 3 4 Active atorvastatin (LIPITOR) 20 mg tablet Take 1 tablet (20 mg total) by mouth in the morning. Active ACCU-CHEK FAN PLUS TEST STRP strip TEST TWICE DAILY 200 strip 3 4 Active lancets (ACCU-CHEK FASTCLIX LANCET DRUM) miscIndications:Typ e 2 diabetes mellitus with hyperglycemia, with long-term current use of insulin ([facility]) USE TO TEST BLOOD SUGAR TWICE DAILY 200 each 3 4 Active metoprolol succinate XL (TOPROL XL) 25 mg 24 hr tabletIndications:C oronary artery disease involving [place] coronary artery of [place] heart without angina pectoris,Status post insertion of drug-eluting stent into right coronary artery for coronary artery disease,S/P CABG x 3 Take 1 tablet (25 mg total) by mouth in the morning. 90 tablet 3 4 Active ezetimibe (ZETIA) 10 mg tabletIndications:T ype 2 diabetes mellitus with hyperglycemia, with long-term current use of insulin ([facility]),Other hyperlipidemia Take 1 tablet (10 mg total) by mouth in the morning. 90 tablet 3 5 Active empagliflozin (JARDIANCE) 10 mg tablet tablet Take 1 tablet (10 mg total) by mouth in the morning. Stop previous script. 90 tablet 3 5 Active Active Problems Problem Noted Date Diagnosed Date Nodule of lower lobe of right lung 12/09/2024 Obesity (BMI 30.0-34.9) 07/14/2024 History of syncope - felt to be due to orthostatic hypotension 202211/25/2022 Essential hypertension 09/17/2022 Hx of hyperlipidemia 09/17/2022 Intermittent lightheadedness 01/10/2022 Status post insertion of elva g-eluting stent into right coronary artery for coronary artery disease August 28, 2020 02/20/2021 Open wound of fourth toe of left foot 09/25/2020 Intermittent palpitations 04/27/2019 Atypical chest pain 04/27/2019 LAE (left atrial enlargement) MILD 04/27/2019 Abdominal aortic aneurysm (AAA) without rupture 04/02/2019 S/P CABG x 3 - ARAIZA to LAD, SVG to OM, SVG to RCA in 2006, patent all 3 grafts on cardiac catheterization August 2020 10/22/2018 Mild mitral regurgitation 10/22/2018 Grade I LV diastolic dysfunction 10/22/2018 PVCs (premature ventricular contractions) - sees Dr Megan English (EP) 06/25/2017 Hypercholesteremia 07/10/2016 Abnormal electrocardiogram 07/05/2015 Coronary artery disease invo lving skull valley coronary artery of skull [place] heart without angina pectoris 07/05/2015 Type 2 diabetes mellitus 03/19/2012 Resolved Problems Problem Noted Date Diagnosed Date Resolved Date Abnormal stress test 2023 024 Abnormal stress ECG 08/22/2020 02/21/20 21 Abnormal stress test 08/22/2020 021 Overview (08/22/2020): Added automatically from request for surgery [id number] Preop cardiovascular exam 01/09/2017 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 09/16/2013 07/14/2024 Encounters Date Type Department Care Team Description 12/22/2024 Documentation [facility] - [facility] [address] [facility] [place] [address] Betsy Lopes RN 12/13/2024 7:54 AM EDT - 12/13/2024 11:59 PM EDT Hospital Encounter [facility] - Pulmonary Function [address] [place] [address] Shortness of breath Discharge Disposition: Home 12/13/2024 Documentation [facility] - [facility] [address] [place] [address] Betsy Lopes RN 12/11/2024 Travel 12/09/2024 9:15 AM EDT Office Visit [facility] - [facility] [address] [place] [address] Alphonso Juan MD Nodule of lower lobe of right lung (Primary Dx) 12/09/2024 Orders Only [facility] - [facility] [address] [place] [address] Betsy Lopes RN Shortness of breath (Primary Dx) 12/09/2024 Orders Only [facility] - [facility] [address] [place] [address] Betsy Lopes RN Coronary artery disease involving skull valley coronary artery of skull valley heart, unspecified whether angina present (Primary Dx) 12/07/2024 Travel 11/24/2024 Telephone [facility] [address] [place] [address] Alphonso Juan MD 11/09/2024 9:35 AM EDT Ancillary Procedure [facility] [address] [place] [address] Pain 10/20/2024 Refill [facility] Department of [facility] [address] [facility] [address] [place] [address] Franck Hurtado MD from Last 3 Months Immunizations Immunization Administration Dates Next Due Tdap 09/14/2022 Family History Medical History Relation Name Comments Hypertension Father Cancer Mother Diabetes Mother Relation Name Status Comments Father Mother Social History Tobacco Use Types Packs/Day Years Used Date Smoking Tobacco: Former Smokeless Tobacco: Never Tobacco Cessation:Counseling Given: Not Answered Alcohol Use Standard Drinks/Week Comments Yes 0 [...] Orientation Straight 10/19/2018 8: 03 AM EDT Last Filed Vital Signs Vital Sign Reading Time Taken Comments Blood Pressure 150/70 12/09/2024 9:09 AM EDT Pulse 68 12/09/2024 9:09 AM EDT Temperature 36.3 C (97.3 F) 12/09/2024 9:09 AM EDT Respiratory Rate 18 12/09/2024 9:09 AM EDT Oxygen Saturation 97% 12/09/2024 9:09 AM EDT Inhaled Oxygen Concentration - - Weight 115.7 kg (255 lb) 12/09/2024 9:09 AM EDT Height 188 cm (6' 2.02 ) 09/21/2024 1:48 PM EST Body Mass Index 32.72 09/21/2024 1:48 PM EST Plan of Treatment Upcoming Encounters Date Type Department Care Team (Late st Contact Info) Description 01/04/2025 9:00 AM EDT Appointment [facility] - Stress Imaging [address] [place] [address] 01/04/2025 9:15 AM EDT Appointment [facility] - Stress Imaging [address] [place] [address] 01/04/2025 9:45 AM EDT Appointment [facility] - Cardiovascular [address] [place] [address] 01/04/2025 10:45 AM EDT Appointment [facility] - Stress Imaging [address] [place] [address] 01/13/2025 9:00 AM EDT Office Visit [facility] - [facility] [address] [facility] [address] [place] [address] Alphonso Juan MD [address] [facility] [address] [place] [address] 01/20/2025 9:15 AM EDT Office Visit [facility] [address] [place] [address] [facility] [address] [place] [address] Tito Barrios MD [address] [facility] [place] [address] 02/28/2025 9:45 AM EDT Office Visit [facility] Department of [facility] [address] [facility] [address] [place] [address] Cassy Gongora, SIX PACK PACKER-APPLICATION DEVELOPMENT DIRECTOR [address] [facility] [address] [place] [address] 06/20/2025 8:15 AM EST Office Visit [facility] Department of [facility] [address] [facility] [address] [place] [address] Franck Hurtado MD [address] [facility] [place] [address] Health Maintenance Due Date Last Done Comments Depression Screening 1967 Adult BMI Follow Up Plan 1971 Diabetic Foot Exam 1971 Fall Risk Screening 06/05/2024 06/05/2023 Diabetic Ophthalmology Exam 10/06/2024 10/07/2023, 0 10/08/2022 Influenza Vaccine 03/28/2025 04/12/2024, , 04/13/2022, Additional history exists Urine Microalbumin 05/13/2025 05/13/2024, 0 12/25/2023, 03/17/2023, Additional history exists Tobacco Screening 09/21/2025 09/21/2024 Adult BMI Screening 12/09/2025 12/09/2024 DTaP,Tdap and Td Vaccines (5 - Td or Tdap) 09/14/2032 09/14/2022, 05/22/2021, 08/08/2010, Additional history exists Abdominal Aortic Aneurysm (A AA) Screen Completed 10/28/2022, 10/14/2022, 10/10/2022, Additional history exists Zoster (Shingles) Vaccine Completed 2022, 03/10/2023, 04/06/2013 COVID-19 Vaccine Completed 11/01/2024, , 10/07/2023, Additional history exists Medical Devices Implanted Type Area Sericulturist Device Identifier Shelf Expiration Date Model / Serial / Lot Dev Fx 5mm Absorbatack 30 Tack Rpl [id number] - Sna - [id number] Implanted:Qty: 1 on 11/09/2018 by Zi Quesada MD at [facility] [place] N/A: Abdomen [employer]IEN/[facility] 08/27/2021 [id number] / NA / [id number] Healicoil Regenasorb 5.5 Mm Suture [place] [id number] Implanted:Qty: 2 on 04/02/2023 by Miguelito Suarez DO at [facility] [place] [employer] 09/27/2025 [id number] / [id number] / [id number] Mesh Pariten Ds [id number] X1 Rpl [id number]+ [id number]+Cmt - Sna - [id number] Implanted:Qty: 1 on 11/09/2018 by Zi Quesada MD at [facility] [place] N/A: Abdomen [employer] [place] 11/24/2018 [id number] / NA / [id number] Cassius Xience Silvia 2.5x33 Rx - [id number] - [id number] Implanted:Qty: 1 on 08/28/2020 by Jaspreet Guerrero MD at [facility] Stent [employer] [id number] 11/15/2020 [id number] 50-33 / [id number] / [id number] Procedures Procedure Name Priority Date/Time Associated Diagnosis Comments CT CHEST WO CONT Routine 11/09/2024 9:35 AM EDT Pain MICROALBUMIN / CREATININE URINE RATIO Routine 05/13/2024 11:17 AM EDT Type 2 diabetes mellitus with hyperglycemia, with long-term current use of insulin ([facility]) DIABETES EYE EXAM Routine 10/07/2023 US RETROPERITONEAL LIMITED Routine 03/09/2021 12:00 PM EDT History of kidney stones Benign localized hyperplasia of prostate without urinary obstruction Urinary frequency from Last 3 Months or Most Recently Relevant to Health Maintenance Results * CT chest without contrast (11/09/2024 9:35 AM EDT) us Scanning Provider External IMG CT ORDERABLES Fin al Result * Microalbumin - Albumin: Creatinine Urine Ratio (05/13/2024 11:17 AM EDT) Microalbumin urine 1.1 0.0 - 1.9 mg/dL 05/13/2024 6:22 PM EDT [facility] Urine creat 80.54 mg/dL 05/13/2024 6:22 PM EDT [facility] Alb/creat ratio 13.7 0.0 - 30.0 mg/g creat 05/13/2024 6:22 PM EDT [facility] Urine / Unknown 05/13/2024 1 1:17 AM EDT 05/13/2024 11:19 AM EDT us Franck Hurtado MD URINE ORDERABLES Final Resu lt [facility] [address] [place] [address] * DIABETES EYE EXAM (10/07/2023) 10/07/2023 Impressions Brigitte Cunningham, MAURO - 10/07/2023 See attached us Not In System Ref Prov HEALTH MAINTENANCE Edited Result - Final * Ultrasound retroperitoneal limited (03/09/2021 12:00 PM EDT) Anatomical Region Laterality Modality Pelvis, Body Ultrasound 03/09/2021 1:05 PM EDT Narrative 03/09/2021 1:09 PM EDT History: Kidney stones Exam/Technique: Multiple sonographic images of both kidneys were obtained. Sonographic evaluation of urinary bladder was also performed. Comparison: 08/09/2010 Findings: The kidneys normal in size with right measuring 11.6 x 6.2 x 5.2 cm the left measuring 12.3 x 6.4 x 6.2 cm. Multiple small echogenic foci were seen in the left kidney consistent with an obstructing left renal calculi. No right renal calculi are demonstrated. No solid renal masses or hydronephrosis was seen either kidney. There are bilateral renal cysts with the one on the left measuring 2.5 cm in diameter and when the right measuring 4.0 cm in diameter. These are simple in nature requiring no further evaluation. Urinary bladder was distended to a volume of 92.2 mL. No mucosal abnormalities are seen. Neither ureteral jet was demonstrated. Incidental note is made of hepatic steatosis. IMPRESSION: 1. Nonobstructing left renal calculi. 2. Otherwise normal renal and urinary bladder ultrasound. There was nonvisualization of either ureteral jet. Finalized by Ubaldo Lopes MD on 03/09/2021 1:09 PM Procedure Note Ubaldo Lopes MD - 03/09/2021 History: Kidney stones Exam/Technique: Multiple sonographic images of both kidneys wereobtained. Sonographic evaluation of urinary bladder was also performed. Comparison: 08/09/2010 Findings: The kidneys normal in size with right measuring 11.6 x 6.2 x5.2 cm the left measuring 12.3 x 6.4 x 6.2 cm. Multiple small echogenic foci were seen in the left kidney consistent withan obstructing left renal calculi. No right renal calculi aredemonstrated. No solid renal masses or hydronephrosis was seen either kidney. There are bilateral renal cysts with the one on the left measuring 2.5 cmin diameter and when the right measuring 4.0 cm in diameter. These aresimple in nature requiring no further evaluation. Urinary bladder was distended to a volume of 92.2 mL. No mucosalabnormalities are seen. Neither ureteral jet was demonstrated. Incidental note is made of hepatic steatosis. IMPRESSION: 1. Nonobstructing left renal calculi. 2. Otherwise normal renal and urinary bladder ultrasound. There wasnonvisualization of either ureteral jet. Finalized by Ubaldo Lopes MD on 03/09/2021 1:09 PM Chuy Castrejon MD [facility] ORDERABLES Final Resu lt from Last 3 Months or Most Recently Relevant to Health Maintenance Insurance [employer] Care Teams Visitor Services Specialist Relationship Specialty Start Date End Date Ashley Bryant MD PCP - General Family Medicine 12/27/16
--- OUTSIDE RECORDS SUMMARY | 2024-12-23 10:56 | XMS_ITS | Encounter Summary ---
Author Organization [facility] Address [address] [facility] [place] [address] Care Team Providers Care Appliance Counselor Name Role Phone Ashley Bryant MD Unavailable Ashley Bryant MD Primary Care Provider [phone] Encounter Details Date Type Department Care Team (Late st Contact Info) Description 12/25/2022 Abstract [facility] [address] [facility] [address] [place] [phone] Miguelito Suarez DO [address] [facility] [address] [place] [address] Social History Tobacco Use Types Packs/Day Years Used Date Smoking Tobacco: Former Cigarettes Alcohol Use Standard Drinks/Week Comments Yes 0 (1 standard drink = 0.6 oz pure alcohol) caffeine 1-2 cups/day; chocolate Sex and Gender Information Value Date Recorded Sex Assigned at Not on file Legal Sex Male 7:07 PM EDT Gender Identity Male 10/09/2022 7:07 PM EDT Sexual Orientation Not on file documented as of this encounter Plan of Treatment Upcoming Encounters Date Type Department Care Team (Late st Contact Info) Description 02/16/2025 11:15 AM EDT Office Visit [facility] [address] [place] [address] Reena Driscoll, DO [address] [place] [address] documented as of this encounter Visit Diagnoses Not on filedocumented in this encounter Care Teams Appliance Counselor Relationship Specialty Start Date End Date Ashley Bryant MD [address] [place] [address] PCP - ACO Reach 12/19/22 Ashley Bryant MD [address] [place] [address] PCP - General Family Medicine 12/26/22 documented as of this encounter
--- OUTSIDE RECORDS SUMMARY | 2024-12-23 10:56 | XMS_ITS | Encounter Summary ---
Author Organization [facility] Address [address] [place] [address] Care Team Providers Care Health Analyst Name Role Phone Ashley Bryant MD Unavailable Ashley Bryant MD Primary Care Provider [phone] Encounter Details Date Type Department Care Team (Late st Contact Info) Description 10/14/2023 Abstract [facility] [address] [facility] [address] Kassidy Thomas LSW Social History Tobacco Use Types Packs/Day Years [...] often do you attend chur ch or worship services? More than 4 times per year 12/31/2022 Do you belong to any clubs o r organizations such as jewish groups, unions, fraternal or athletic groups, or [...] and heating? Not hard at all 12/31/2022 [facility] of Occupat ional Health - Occupational Stress [...] place to sleep or slept in a half-way (including now)? No 12/31/2022 Sex and Gender [...] EDT Office Visit [facility] [address] [place] [phone] Reena Driscoll, DO [address] [place] [address] documented as of this encounter Visit Diagnoses Not on filedocumented in this encounter Care Teams Health Analyst Relationship Specialty Start Date End Date Ashley Bryant MD [address] [place], [place] [id number] PCP - ACO Reach 12/19/22 Ashley Bryant MD [address] [place], [place] [phone] PCP - General Family Medicine 12/26/22 documented as of this encounter
--- OUTSIDE RECORDS SUMMARY | 2024-12-23 10:56 | XMS_ITS | Encounter Summary ---
Author Organization [facility] tem Address [id number] [address] [place] [address] Care Team Providers Care Construction Framer Name Role Phone Ashley Bryant MD Primary Care Provider [phone] Encounter Details Date Type Department Care Team (Late st Contact Info) Description 10/14/2022 [facility] [address] [facility] [address] [place] [address] External, Scanning Provider Social History Tobacco Use Types Packs/Day Years [...] have Coronavirus / COVID-19? No / Unsure 10/14/2022 3:25 PM EDT documented as of this encounter Plan of Treatment Upcoming Encounters Date Type Department Care Team (Late st Contact Info) Description 01/04/2025 9:00 AM EDT Appointment [facility] - Stress Imaging [address] [place] [address] 01/04/2025 9:15 AM EDT Appointment [facility] - Stress Imaging [address] [place] [address] 01/04/2025 9:45 AM EDT Appointment [facility] - Cardiovascular [address] [place] [address] 01/04/2025 10:45 AM EDT Appointment [facility] - Stress Imaging [address] [place] [address] 01/13/2025 9:00 AM EDT Office Visit [facility] [address] [facility] [address] [place] [address] Alphonso Juan MD [address] [facility] [address] [place] [address] 01/20/2025 9:15 AM EDT Office Visit [facility] [address] [place] [address] [address] [place] [address] Tito Barrios MD [address] [facility] [place] [address] 02/28/2025 9:45 AM EDT Office Visit [facility] Department of [facility] [address] [phone] Cassy Gongora, SHIP SUPERINTENDENT-INSPECTOR TECHNICIAN [address] [address] 06/20/2025 8:15 AM EST [facility] Department of [facility] [address] [phone] Franck Hurtado MD [address] [facility] [place] [address] documented as of this encounter Visit Diagnoses Not on filedocumented in this encounter Additional Health Concerns Assessment Noted Time PHQ-9 Depression Total Score: 0 08/28/19 21 8:39 AM EST documented as of this encounter Care Teams Construction Framer Relationship Specialty Start Date End Date Ashley Bryant MD PCP - General Family Medicine 12/27/16 documented as of this encounter
--- OUTSIDE RECORDS SUMMARY | 2024-12-23 10:56 | XMS_ITS | Encounter Summary ---
Author Organization [facility] tem Address [id number] [address] [place] [address] Care Team Providers Care Geospatial Developer Name Role Phone Ashley Bryant MD Primary Care Provider [phone] Encounter Details Date Type Department Care Team (Late Contact Info) Description 09/26/2022 Orders Only [facility] [address] [place] [phone] Giacomo Knight, MAURO Social History Tobacco Use Types Packs/Day Years [...] or suspected to have Coronavirus / COVID-19? Unable to assess 09/26/2022 10:32 AM EST documented as of this encounter Plan of Treatment Upcoming Encounters Date Type Department Care Team (Late st Contact Info) Description 01/04/2025 9:00 AM EDT Appointment [facility] [address] [place] [address] 01/04/2025 9:[address] [facility] - Stress Imaging [address] [place] [address] 01/04/2025 9:[address] [facility] - Cardiovascular [address] [place] [address] 01/04/2025 10:[address] [facility] - [facility] Imaging [address] [place] [address] 01/13/2025 9:00 AM EDT Office Visit [facility] [address] [place] [address] [address] [place] [address] Alphonso Juan MD [address] [facility] [address] [place] [address] 01/20/2025 9:15 AM EDT Office Visit [facility] [address] [place] [address] [address] [place] [phone] Tito Barrios MD [address] [facility], [address] [place] [address] 02/28/2025 9:45 AM EDT Office Visit [facility] A Department of [facility] [address] [phone] Cassy Gongora, PATIENT ACCOUNTS SPECIALIST-ULTRASONIC HAND SOLDERER [address] [address] 06/20/2025 8:15 AM EST Office Visit [facility] A Department of [facility] [address] [phone] Franck Hurtado MD [address] [facility], [address] [place] [address] documented as of this encounter Visit Diagnoses Not on filedocumented in this encounter Additional Health Concerns Assessment Noted Time PHQ-9 Depression Total Score: 0 08/28/19 21 8:39 AM EST documented as of this encounter Care Teams Geospatial Developer Relationship Specialty Start Date End Date Ashley Bryant MD PCP - General Family Medicine 12/27/16 documented as of this encounter
--- OUTSIDE RECORDS SUMMARY | 2024-12-23 10:56 | XMS_ITS | Encounter Summary ---
Author Organization [facility] tem Address [facility] [id number] [address] [place] [address] Care Team Providers Care Customs Compliance Specialist Name Role Phone Ashley Bryant MD Primary Care Provider [phone] Encounter Details Date Type Department Care Team (Latest Contact Info) Description 12/11/2024 Travel Social History Tobacco Use Types Packs/Day [...] Info) Description 01/04/2025 9:00 AM EDT Appointment [facility] - Stress Imaging [address] [place] [address] 01/04/2025 9:15 AM EDT Appointment [facility] - Stress Imaging [address] [place] [address] 01/04/2025 9:45 AM EDT Appointment [facility] - Cardiovascular [address] [place] [address] 01/04/2025 10:45 AM EDT Appointment [facility] - Stress Imaging [address] [place] [address] 01/13/2025 9:00 AM EDT Office Visit [facility] [address] [facility] [address] [place] [address] Alphonso Juan MD [address] [facility] [address] [place] [address] 01/20/2025 9:15 AM EDT Office Visit [facility] [address] [place] [address] [address] [place] [phone] Tito Barrios MD [address] [facility], [address] [place] [address] 02/28/2025 9:45 AM EDT Office Visit [facility], A Department of [facility] [address] [facility] [address] [place] [address] Cassy Gongora, CURTAIN ROLLER ASSEMBLER-WIND TURBINE INSTALLER [address] [facility] 100 [place] [address] 06/20/2025 8:15 AM EST Office Visit [facility], A Department of [facility] [address] [facility] [address] [place] [address] Franck Hurtado MD [address] [facility], [address] [place] [address] documented as of this encounter Visit Diagnoses Not on filedocumented in this encounter Additional Health Concerns Assessment Noted Time PHQ-9 Depression Total Score: 0 08/28/19 21 8:39 AM EST documented as of this encounter Care Teams Customs Compliance Specialist Relationship Specialty Start Date End Date Ashley Bryant MD PCP - General Family Medicine 12/27/16 documented as of this encounter
--- OUTSIDE RECORDS SUMMARY | 2024-12-23 10:56 | XMS_ITS | Encounter Summary ---
Author Organization [facility] Address [address] [facility] [place] [address] Care Team Providers Care Franchise Field Consultant Name Role Phone Ashley Bryant MD Unavailable Ashley Bryant MD Primary Care Provider [phone] Encounter Details Date Type Department Care Team (Late st Contact Info) Description 01/06/2024 Orders Only [facility] [address] [place] [address] Ashley Bryant MD [address] [place], [place] [phone] Social History Tobacco Use Types Packs/Day Years [...] often do you attend chur ch or judaism services? More than 4 times per year 12/31/2022 Do you belong to any clubs o r organizations such as tenriism groups, unions, fraternal or athletic groups, or [...] Recorded Patient Health Questionnaire-2 Score 0 12/18/2023 [facility] - [...] place to sleep or slept in a care home (including now)? No 12/31/2022 Sex and [...] EDT Office Visit [facility] [address] [place] [address] Reena Driscoll, DO [address] [place] [address] documented as of this encounter Visit Diagnoses Not on filedocumented in this encounter Care Teams Franchise Field Consultant Relationship Specialty Start Date End Date Ashley Bryant MD [address] [place] [address] PCP - ACO Reach 12/19/22 Ashley Bryant MD [address] [place], [place] [phone] PCP - General Family Medicine 12/26/22 documented as of this encounter
--- OUTSIDE RECORDS SUMMARY | 2024-12-23 10:56 | XMS_ITS | Encounter Summary ---
Author Organization [facility] tem Address [id number] [address] [place] [address] Care Team Providers Care Postmaster Relief Name Role Phone Ashley Bryant MD Primary Care Provider [phone] Reason for Referral * Vascular (Routine) - Closed Specialty Diagnoses / Procedures Referred By Contang t Referred To Contact Diagnoses Bilateral carotid artery stenosis Procedures Vas carotid duplex bilateral Iona Chavez MD [address] [place] [address] Phone: tel: fax: Referral ID Status Reason Start Date Expiration Date Visits Re quested Visits Authorized [id number] Closed 09/08/2024 09/08/2025 1 1 Encounter Details Date Type Department Care Team (Late st Contact Info) Description 09/08/2024 Orders Only [facility] [address] [place] [address] Iona Chavez MD [address] [place] [address] Bilateral carotid artery stenosis (Primary Dx) Social History Tobacco Use Types [...] Info) Description 01/04/2025 9:00 AM EDT Appointment [facility] - Stress Imaging [address] [place] [address] 01/04/2025 9:15 AM EDT Appointment [facility] - [facility] Imaging [address] [place] [address] 01/04/2025 9:45 AM EDT Appointment [facility] - Cardiovascular [address] [place] [address] 01/04/2025 10:45 AM EDT Appointment [facility] - Stress Imaging [address] [place] [address] 01/13/2025 9:00 AM EDT Office Visit [facility] [address] [place] [address] Alphonso Juan MD [address] [place] [address] 01/20/2025 9:15 AM EDT Office Visit [facility] [address] [place] [address] [address] [place] [address] Tito Barrios MD [address] [facility], [address] [place] [address] 02/28/2025 9:45 AM EDT Office Visit [facility] A Department of [facility] [address] [facility] [address] [place] [address] Cassy Gongora, FRUIT HARVESTER-FLAKE MILLER WHEAT AND OATS [address] [address] 06/20/2025 8:15 AM EST Office Visit [facility], A Department of [facility] [address] [phone] Franck Hurtado MD [address] [facility], [address] [place] [address] documented as of this encounter Results * Vas carotid duplex bilateral (09/09/2024 1:25 PM EST) Anatomical Region Laterality Modality Vascular Bilateral Ultrasound 09/09/2024 1:36 PM EST Narrative 09/09/2024 4:16 PM EST Previous: Previous carotid duplex exam performed 10/22/2022. Right: <50% ICA stenosis. Left: <50% ICA stenosis. >50% ECA stenosis. Right: Plaque with no significant ICA spectral Doppler or color flow disturbances; ICA 84/25 cm/sec. Antegrade vertebral artery flow. Left: Plaque with no significant ICA spectral Doppler or color flow disturbances; ICA 101/31 cm/sec. ECA with significant spectral Doppler/color flow disturbances--velocity 347/59 cm/sec . Antegrade vertebral artery flow. Conclusions: RIGHT: Plaque without significant stenosis (<50%) of the internal carotid artery. Antegrade vertebral artery flow. LEFT: Plaque without significant stenosis (<50%) of the internal carotid artery. Antegrade vertebral artery flow. Image and spectral Doppler data consistent with hemodynamically significant (>50%) external carotid artery stenosis. When compared to previous report no significant changes were noted. Procedure Note Cisco Ontiveros MD - 09/09/2024 Previous: Previous carotid duplex exam performed 10/22/2022. Right: <50%ICA stenosis. Left: <50% ICA stenosis. >50% ECA stenosis. Right: Plaque with no significant ICA spectral Doppler or color flowdisturbances; ICA 84/25 cm/sec. Antegrade vertebral artery flow. Left: Plaque with no significant ICA spectral Doppler or color flowdisturbances; ICA 101/31 cm/sec. ECA with significant spectralDoppler/color flow disturbances--velocity 347/59 cm/sec . Antegradevertebral artery flow. Conclusions: RIGHT: Plaque without significant stenosis (<50%) of theinternal carotid artery. Antegrade vertebral artery flow. LEFT: Plaquewithout significant stenosis (<50%) of the internal carotid artery.Antegrade vertebral artery flow. Image and spectral Doppler data consistent with hemodynamically significant(>50%) external carotid artery stenosis. When compared to previous reportno significant changes were noted. us Iona hCavez MD CV VASCULAR ORDERABLES Jaz coronado Result documented in this encounter Visit Diagnoses Diagnosis Bilateral carotid artery stenosis- Primary Occlusion and stenosis of carotid artery without mention of cerebral infarction Bilateral carotid artery stenosis Occlusion and stenosis of carotid artery without mention of cerebral infarction documented in this encounter Additional Health Concerns Assessment Noted Time PHQ-9 Depression Total Score: 0 08/28/19 21 8:39 AM EST documented as of this encounter Care Teams Postmaster Relief Relationship Specialty Start Date End Date Ashley Bryant MD PCP - General Family Medicine 12/27/16 documented as of this encounter"
--- OUTSIDE RECORDS SUMMARY | 2024-12-23 10:57 | XMS_ITS | Clinical Summary ---
Author Organization [facility] [address] [place] [address] Care Team Providers Care Child Caregiver Name Role Phone Ashley Bryant MD Primary Care Provider [phone] Allergies Active Allergy Reactions Criticality Noted Date Comments Amoxicillin 04/03/2018 Medications JARDIANCE 10 MG tablet TK 1 T PO QD 03/22/2020 Active Insulin Degludec (TRESIBA FLEXTOUCH) 200 UNIT/ML SOPN daily 08/30/2018 Active VICTOZA 18 MG/3ML SOPN SC injection ADM 1.8 MG SC QD 03/02/2020 Active insulin aspart (NOVOLOG FLEXPEN) 100 UNIT/ML injection pen ADM 6 UNI SC TID WITH EACH MEAL UTD 09/13/2019 Active metFORMIN (GLUCOPHAGE) 1000 MG tablet Take 1,000 mg by mouth 2 times daily (with meals) Active Active Problems No known active problems Family History Medical History Relation Name Comments Arthritis Father Diabetes Mother Relation Name Status Comments Father Mother Social History Tobacco Use Types Packs/Day Years Used Date Smoking Tobacco: Former Smokeless Tobacco: Never Sex and Gender Information Value Date Recorded Sex Assigned at Not on file Legal Sex Male 2:35 PM EST Gender Identity Not on file Sexual Orientation Not on file Last Filed Vital Signs Vital Sign Reading Time Taken Comments Blood Pressure - - Pulse - - Temperature 36 C (96.8 F) 10/20/2020 3:18 PM EDT Respiratory Rate - - Oxygen Saturation - - Inhaled Oxygen Concentration - - Weight 109.8 kg (242 lb) 10/20/2020 3:18 PM EDT Height 190.5 cm (6' 3 ) 10/20/2020 3:18 PM EDT Body Mass Index 30.25 10/20/2020 3:18 PM EDT Plan of Treatment Not on file Insurance MEDICARE Member Subscriber Plan / Payer (Ef fective 2018-Present) Name:Wan Dawson Relation to Subscriber:Self Name:Wan Dawson Payer ID:Not on file Group ID:Not on file Type:Not on file Address: [address] Care Teams Child Caregiver Relationship Specialty Start Date End Date Ashley Bryant MD [address] [place] [address] PCP - General 09/30/17
--- OUTSIDE RECORDS SUMMARY | 2024-12-23 10:57 | XMS_ITS | Encounter Summary ---
Author Organization [facility] Address [facility] [place][id number] [address] [place] [address] Care Team Providers Care Robot Operator Name Role Phone Ashley Bryant MD Primary Care Provider [phone] Reason for Referral * Cardiology (Routine) - Authorized Specialty Diagnoses / Procedures Referred By Contac t Referred To Contact Diagnoses Coronary artery disease involving [place] coronary artery of [place] heart, unspecified whether angina present Procedures Nuc stress [place]isc[place] [address] [place] [address] [place] [address] Phone: tel: fax: Referral ID Status Reason Start Date Expiration Date V isits Requested Visits Authorized [id number] Authorized 12/09/2024 12/09/2025 5 5 Encounter Details Date Type Department Care Team (Late st Contact Info) Description 12/09/2024 Orders Only [facility] [address] [phone] Betsy Lopes RN Coronary artery disease involving [place] coronary artery of [place] heart, unspecified whether angina present (Primary Dx) Social History Tobacco Use Types [...] Info) Description 01/04/2025 9:00 AM EDT Appointment [facility] - [facility] [address] [place] [address] 01/04/2025 9:15 AM EDT Appointment [facility] [address] [place] [address] 01/04/2025 9:45 AM EDT Appointment [facility] - Cardiovascular [address] [place] [address] 01/04/2025 10:45 AM EDT Appointment [facility] - Stress Imaging [address] [place] [address] 01/13/2025 9:00 AM EDT Office [facility] [address] [place] [address] Alphonso Juan MD [address] [place] [address] 01/20/2025 9:15 AM EDT Office Visit [facility] [address] [place] [address] [address] [place] [address] Tito Barrios MD [address] [facility], [address] [place] [address] 02/28/2025 9:45 AM EDT Office Visit [facility] A Department of [facility] [address] [address] Cassy Gongora, ORDER BUILDER-HR ADVISOR [address] [address] 06/20/2025 8:15 AM EST [facility] Department of [facility] [address] [phone] Franck Hurtado MD [address] [facility], [address] [place] [address] Scheduled Orders Name Type Priority Associated Diagnoses Orde r Schedule Nuc stress Lexiscan/Exercise Cardiac Services Routine Coronary artery disease involving [place] coronary artery of [place] heart, unspecified whether angina present Expected: 12/09/2024, Expires: 12/09/2025 documented as of this encounter Visit Diagnoses Diagnosis Coronary artery disease involving [place] coronary artery of [place] heart, unspecified whether angina present- Primary documented in this encounter Additional Health Concerns Assessment Noted Time PHQ-9 Depression Total Score: 0 08/28/19 8:39 AM EST documented as of this encounter Care Teams Robot Operator Relationship Specialty Start Date End Date Ashley Bryant MD PCP - General Family Medicine 12/27/16 documented as of this encounter
--- OUTSIDE RECORDS SUMMARY | 2024-12-23 10:57 | XMS_ITS | Encounter Summary ---
Author Organization [facility] Address [facility] [id number] [address] [place] [address] Care Team Providers Care Readiness Paraprofessional Name Role Phone Ashley Bryant MD Primary Care Provider [phone] Reason for Visit * Reason Comments Med Refill Encounter Details Date Type Department Care Team (Late st Contact Info) Description 08/07/2020 Refill [facility] [address] [facility] [address] [place] [address] Tito Barrios MD [address] [facility], [address] [place] [address] Med Refill Social History Tobacco Use Types Packs/Day Years Used Date Smoking Tobacco: Former Smokeless Tobacco: Never Alcohol Use Standard Drinks/Week Comments Yes 0 (1 standard drink = 0.6 oz pur e alcohol) rare Childcare Answer Date Recorded Childcare Unknown 01/06/2019 Employment Answer Date Recorded Employment Unknown 01/06/2019 Purpose - Life Answer Date Recorded Purpose and direction in life Unknown Sex and Gender Information Value Date Recorded [...] have Coronavirus / COVID-19? No / Unsure 08/10/2020 8:53 AM EST documented as of this encounter Plan of Treatment Upcoming Encounters Date Type Department Care Team (Late st Contact Info) Description 01/04/2025 9:00 AM EDT Appointment [facility] - Stress Imaging [address] [place] [address] 01/04/2025 9:15 AM EDT Appointment [facility] - Stress Imaging [address] [place] [address] 01/04/2025 9:45 AM EDT Appointment [facility] - Cardiovascular [address] [place] [address] 01/04/2025 10:45 AM EDT Appointment [facility] - Stress Imaging [address] [place] [address] 01/13/2025 9:00 AM EDT Office Visit [facility] [address] [place] [address] [address] [place] [phone] [place] [address] [place] [address] [address] [place] [address] 01/20/2025 9:15 AM EDT Office Visit [facility] [address] [place] [address] Tito Barrios MD [address] [facility], [address] [place] [address] 02/28/2025 9:45 AM EDT Office Visit [facility] A Department of [facility] [address] [facility] 100 [place] [address] Cassy Gongora, NATURAL GAS BASIS TRADER-GARMENT SUPERVISOR [address] [facility] [address] [place] [address] 06/20/2025 8:15 AM EST Office Visit [facility] A Department of [facility] [address] [facility] [address] [place] [address] Franck Hurtado MD [address] [facility], [address] [place] [address] documented as of this encounter Visit Diagnoses Diagnosis Coronary artery disease involving [place] coronary artery of [place] heart without angina pectoris S/P CABG x 3 - ARAIZA to LAD, SVG to OM, SVG to RCA in 2006 Postsurgical aortocoronary bypass status Chest pain of uncertain etiology documented in this encounter Additional Health Concerns Infection Onset Date Last Indicated Resolved Time COVID-19 Rule-Out 08/25/2020 08/25/2020 08/25/2020 3:43 PM EST documented as of this encounter Care Teams Readiness Paraprofessional Relationship Specialty Start Date End Date Ashley Bryant MD PCP - General Family Medicine 12/27/16 documented as of this encounter
--- NOTE | 2024-12-23 11:05 | CT_ITS ---
The [address] [address] Patient Name: LIZ WOLFF MRN: [id number] date: 1955 Sex: M Assigned Patient Location: CT Current Patient Location: CT Accession/Order Number: [id number] Exam Date: 12/23/2024 11:36 Report Date: 12/23/2024 11:50 At the request of: AVELINO IGLESIAS Procedure: CT abdomen pelvis wo con CT ABDOMEN AND PELVIS WITHOUT CONTRAST COMPARISON: None CLINICAL DATA: Right flank pain. History kidney stones. Spiral images were obtained through the abdomen and pelvis without contrast. This CT exam was performed using one or more following dose reduction techniques: Automated exposure control, adjustment of the mA and/or kV according to patient size, or use of iterative reconstruction technique. Limited cuts through the lung bases show no contributory pulmonary findings. There is a small hiatal hernia. There is a right paraesophageal soft tissue nodular area on the first few images measuring just over 2 cm in cross-sectional dimension. Etiology and significance is undetermined on the basis of this study. Evaluation of the intra-abdominal organs is slightly limited by the absence of contrast. There are multiple tiny stones toward the gallbladder neck. There is no pericholecystic inflammation. No intrahepatic masses are identified. Calcified splenic granulomas are noted. The pancreas shows no acute findings. There is minor nodular adrenal limb thickening. No renal calculi are visualized. There are multiple bilateral renal hypodensities, largest at the lower pole of the left kidney measuring 5.3 cm in size . Although evaluation is incomplete without contrast, these are probably cysts. There is also a small 1 cm hyperdense nodule at the mid to lower pole on the left that may be a hemorrhagic cyst. No hydronephrosis is present. No ureteral dilatation or stones are seen. There is atherosclerotic plaque involving the aorta, iliac and some of the visceral arteries. There is a distal abdominal aortic aneurysm with AP diameter of approximately 4.7 cm. There is also mild dilatation of the proximal left common iliac artery diameter of 2.5 cm. No ascites is noted. Tiny lymph nodes are present. A small umbilical hernia is noted containing fat. The small bowel loops are not distended. There is mild stool throughout the colon. Scattered colonic diverticula are seen. Dextroscoliotic curvature and multilevel degenerative changes are seen at the spine, greatest at the lower facets. Images through the pelvis show normal caliber small bowel loops. There is no appendiceal inflammation. There is minimal distal colonic stool. A few additional colonic diverticula are visualized. There is no active inflammation. The prostate is borderline prominent. The urinary bladder is poorly distended for evaluation. There is no ascites. CT/CT abdomen pelvis wo con IMPRESSION: SMALL HIATAL HERNIA. INDETERMINANT, PARTIALLY IMAGED RIGHT PARAESOPHAGEAL SOFT TISSUE DENSITY. CHOLELITHIASIS. PROBABLE SIMPLE BILATERAL AND LEFT HEMORRHAGIC RENAL CYSTS. NO OBSTRUCTIVE UROPATHY OR STONE DISEASE. DIVERTICULOSIS. UNDER DISTENDED URINARY BLADDER, LIMITING EVALUATION. DISTAL ABDOMINAL AORTIC AND LEFT COMMON ILIAC ARTERY ANEURYSMS. Impression dictated by: Laura Lane M.D. 12/23/2024 11:50 AM Dictation Location: [place] [id number] Electronically authenticated by: [id number] Y Date: 12/23/2024 11:50
== END 2024-12-23 10:49 | disposition home or self-care (01) ==
PROVIDERS: PCP Family Medicine; Visit Provider Physician Assistant
DX: R10.9 Unspecified abdominal pain (principal); Z87.442 Personal history of urinary calculi; K44.9 Diaphragmatic hernia without obstruction or gangrene; K80.20 Calculus of gallbladder without cholecystitis without obstruction; N28.1 Cyst of kidney, acquired; K57.90 Diverticulosis of intestine, part unspecified, without perforation or abscess without bleeding; I71.40 Abdominal aortic aneurysm, without rupture, unspecified
CPT/HCPCS: 74176